=== PATIENT | female | born 1955 | race Caucasian/White ===

== ENCOUNTER 2017-11-18 02:13 | Emergency (ER) | payer BC, SELFPAY ==
[2017-11-18 02:14] VITALS: BP 135/57; PULSE 73; RESP 20; TEMP 36.8; O2SAT 98; BMI 27.0
--- NOTE | 2017-11-18 02:38 | EKG12_ITS ---
Test Reason : ABD PAIN Blood Pressure : / mmHG Vent. Rate : 067 BPM Atrial Rate : 067 BPM P-R Int : 132 ms QRS Dur : 082 ms QT Int : 440 ms P-R-T Axes : 062 053 067 degrees QTc Int : 464 ms Normal sinus rhythm Low voltage QRS Borderline ECG Confirmed by PEYTON DURAN, JULIA ([id number]), associate entertainment editor EPHRAIM OLSEN ([id number]) on 11/20/2017 2:05:33 PM Referred By: ISABEL Confirmed By:JULIA TODD MD
--- NOTE | 2017-11-18 02:39 | CT_ITS ---
STUDY: CT ABDOMEN AND PELVIS WITH CONTRAST REASON FOR EXAM: Female, 62 years old. Mid abdominal pain. History of breast cancer and sinus cancer. RADIATION DOSAGE (If Supplied By Facility): CTDIvol = ( 13.16 ) mGy, DLP = ( 818.56 ) mGycm TECHNIQUE: Transaxial images were obtained from the dome of the diaphragm to the symphysis pubis without oral contrast. 100ml ml of Isovue 300 contrast was administered. Sagittal and coronal images were reconstructed. Individualized dose optimization techniques were used for this CT. COMPARISON: None. FINDINGS: The visualized lung bases are unremarkable. The visualized portions of the heart are within normal limits. 0.8 x 0.5 cm low-attenuation lesion right lobe of the liver likely representing an incidental cyst or hemangioma. Mildly distended gallbladder. It is difficult to totally exclude pericholecystic fluid. No gallbladder wall thickening or gallstones. Normal spleen. Normal pancreas. Normal bilateral adrenal glands. Normal right kidney. Normal left kidney. Normal visualized stomach. Normal small intestine. Normal colon. There is non-visualization of the appendix compatible with history of appendectomy. Normal abdominal aorta. Normal inferior vena cava. Normal retroperitoneum. No intraabdominal free air. Normal urinary bladder. Uterus grossly normal. No adnexal mass is seen. Normal abdominal wall. Normal osseous structures. CT/Abdomen/Pelvis W IV Cont ONLY IMPRESSION: Mildly distended gallbladder. Questionable pericholecystic fluid. Correlate with right upper quadrant ultrasound to exclude acute cholecystitis. 0.8 cm low-attenuation lesion right lobe of the liver difficult to characterize with CT. This can be evaluated by ultrasound as well. No evidence of bowel obstruction. Electronically Signed: Ray Brumfield MD at 4:21 EDT , Service support ,
--- NOTE | 2017-11-18 02:40 | RAD_ITS ---
STUDY: X-RAY CHEST REASON FOR EXAM: Female, 62 years old. Epigastric pain. TECHNIQUE: PA and lateral chest. COMPARISON: January 26, 2015 FINDINGS: The lungs are clear and expanded. There is no demonstrated pleural abnormality. Normal size heart. Normal mediastinum and karina. Normal visualized pulmonary arteries. Normal visualized aortic arch and descending thoracic aorta. Normal visualized thoracic spine. Normal visualized ribs, clavicles, and shoulders. There is no demonstrated abnormality of the visualized soft tissue structures of the upper abdomen. RAD/Chest PA and Lateral IMPRESSION: Normal x-ray examination of the chest. Electronically Signed: Ray Brumfield MD at 3:49 EDT , Service support ,
--- NOTE | 2017-11-18 02:43 | ED.DCSUM_ITS ---
- ER Visit Summary Date of Service: 11/18/17 Chief Complaint: Abdominal pain History of Present Illness: The patient is a 62 F with history of blindness and cancer of the sinus and breast who presents for severe abdominal pain. Onset was 4 hours ago. Pain is in the epigastric region and radiates into the back. Patient has associated nausea and vomiting. No fever, diarrhea, urinary symptoms, chest pain or shortness of breath. Patient has tried Gas-X, ranitidine, and Cris-[place] without any relief. She recently traveled to [place] but denies any exposure to exotic foods or any other odd exposures. Patient takes baby aspirin and Celexa. No alcohol or tobacco use. History of appendectomy. Physical Examination: Vital signs: afebrile, hemodynamically stable, no hypoxia on room air General: well nourished, well developed, appears uncomfortable, laying left lateral recumbent in bed with knees drawn to chest Skin: warm, dry, no rash, no pallor HEENT: normocephalic and atraumatic; eyes closed, moist mucous membranes Cardiovascular: regular rate and rhythm without murmurs, no peripheral edema, 2 + pulses all distal extremities Respiratory: No increased work of breathing, lungs are clear to auscultation bilaterally, no rales, rhonchi or wheezing Abdominal: Abdomen is soft, tender diffusely, especially in the epigastrium, with normoactive bowel sounds, no guarding or rigidity or rebound, no masses MSK: Moves all extremities, no deformities, normal strength Neuro: Awake and alert, oriented ?4. No facial droop, sensation and motor function intact and symmetric Test Results: Abnormal Lab Results 11/18/17 11/18/17 11/18/17 02:15 02:15 02:45 WBC 10.6 RBC 4.46 Hgb 11.6 L Hct 37.2 MCV 83.4 MCH 26.0 L MCHC 31.2 L RDW 14.5 RDW Differential 44.6 H Plt Count 270 MPV 9.6 Immature Gran % (Auto) 0.300 Neut % (Auto) 41.3 L Lymph % (Auto) 45.1 H [place] % (Auto) 5.2 Eos % (Auto) 7.8 H Baso % (Auto) 0.3 Absolute Neuts (auto) 4.4 Absolute Lymphs (auto) 4.80 H Total Counted Not Reportable Sodium 141 Potassium 3.5 Chloride 104 Carbon Dioxide 27.0 Anion Gap 10 BUN 11 Creatinine 0.95 Estim Creat Clear Calc 51.44 Est GFR (MDRD) Af Amer 77 Est GFR (MDRD) Non-Af 64 BUN/Creatinine Ratio 11.6 Glucose 110 H Lactic Acid 1.8 Calcium 9.0 Total Bilirubin 0.30 AST 20 ALT 26 Alkaline Phosphatase 117 Troponin I < 0.015 Total Protein 7.7 Albumin 3.5 Globulin 4.2 Albumin/Globulin Ratio 0.8 L Lipase 167 Urine Color Urine Clarity Urine pH Ur Specific [place] Urine Protein Urine Glucose (UA) Urine Ketones Urine Occult Blood Urine Nitrite Urine Bilirubin Urine Urobilinogen Ur Leukocyte Esterase Urine RBC Urine WBC Ur Squamous Epith Cells Urine Bacteria Urine Mucus 11/18/17 03:20 WBC RBC Hgb Hct MCV MCH MCHC RDW RDW Differential Plt Count MPV Immature Gran % (Auto) Neut % (Auto) Lymph % (Auto) [place] % (Auto) Eos % (Auto) Baso % (Auto) Absolute Neuts (auto) Absolute Lymphs (auto) Total Counted Sodium Potassium Chloride Carbon Dioxide Anion Gap BUN Creatinine Estim Creat Clear Calc Est GFR (MDRD) Af Amer Est GFR (MDRD) Non-Af BUN/Creatinine Ratio Glucose Lactic Acid Calcium Total Bilirubin AST ALT Alkaline Phosphatase Troponin I Total Protein Albumin Globulin Albumin/Globulin Ratio Lipase Urine Color Yellow Urine Clarity Sl. Cloudy Urine pH 6.5 Ur Specific [place] 1.015 Urine Protein Negative Urine Glucose (UA) Normal Urine Ketones Negative Urine Occult Blood 25 H Urine Nitrite Negative Urine Bilirubin Negative Urine Urobilinogen Normal Ur Leukocyte Esterase 25 H Urine RBC 0-5 SEEN Urine WBC 0-5 SEEN Ur Squamous Epith Cells 0-5 SEEN Urine Bacteria 1+ Urine Mucus RARE Clinical Impression(s) from Imaging Studies Abdomen/Pelvis CT 11/18/17 02:39 IMPRESSION: Mildly distended gallbladder. Questionable pericholecystic fluid. Correlate with right upper quadrant ultrasound to exclude acute cholecystitis. 0.8 cm low-attenuation lesion right lobe of the liver difficult to characterize with CT. This can be evaluated by ultrasound as well. No evidence of bowel obstruction. Chest X-Ray 11/18/17 02:40 IMPRESSION: Normal x-ray examination of the chest. Emergency Department Course and Treatment: Patient is very uncomfortable appearing. She was given IV fluids, morphine and Zofran for symptomatic relief. Given the location of patient's pain in the epigastrium, abdominal workup and chest pain workup were performed. EKG showed a sinus rhythm without ischemia or ectopy. Chest x-ray showed no infiltrates or pneumothorax. Troponin negative. CBC showed no leukocytosis. Chemistry panel showed no renal dysfunction or electrolyte derangements. Hepatic function was within normal limits and lipase was normal. Urinalysis showed no signs of infection. Lactate was normal at 1.8. CT of the abdomen and pelvis showed a distended gallbladder with no apparent gallstones or wall thickening, and questionable pericholecystic fluid. Patient was reevaluated and had great improvement in her pain. She was resting comfortably in bed, and on reevaluation she had mild epigastric tenderness and no right upper quadrant tenderness or positive Hwang sign. Given her improvement and benign repeat exam, the gallbladder distention and questionable pericholecystic fluid on the CT scan are less likely to be cholecystitis, as patient also has no leukocytosis and is afebrile. Discussed with patient the option of getting an ultrasound in the morning when the molecular technologist arrives versus patient discharged and getting an ultrasound outpatient. Patient opted for discharge and was given an order for an outpatient ultrasound that she will get later today. Return precautions were given, and patient will return if her pain returns, she develops a fever, uncontrolled vomiting or has any other concerns. Given the patient's improvement with 1 round of pain medication, symptoms less than 6 hours in duration, history provided of patient having a large cheeseburger for dinner, and no leukocytosis or fever, patient's symptoms would be more likely biliary colic rather than acute cholecystitis, if her symptoms were due to gallbladder pathology at all. Unlikely cardiac given the reproducible pain with palpation of the abdomen, thus no further cardiac workup performed. Patient was discharged home with her . She was offered prescriptions for pain medications and antiemetics, and declined. Treatment Plan: [] Disposition: [] Impression: Epigastric abdominal pain, biliary colic This note was generated with [employer] dictation software. It may contain incorrect words, spelling, and punctuation that were not noted in review of the chart prior to signing ED Disposition - Plan for ED Patient: Disposition: Home or Assisted Living Chief Complaint: Abd Pain Instructions: ED Abdominal Pain Gallstone Poss Referrals: Gumaro Aiken DO [Primary Care Provider] - 1-2 Days if not improving Additional Instructions: Please get the gallbladder ultrasound performed outpatient today or tomorrow to evaluate for gallstones. You may use Tylenol as needed for pain and your home Zofran as needed for nausea. You develop severe pain again, have a fever, uncontrolled vomiting, or any other concerning symptoms, please return immediately to the emergency department for another evaluation.
[2017-11-18] MEDS: 0.9% Normal Saline 1,000 ML 1000 ML IV (02:45)
[2017-11-18] MEDS: Ondansetron 4 MG/2 ML Vial IV (02:45)
[2017-11-18] MEDS: Morphine 4 MG/ML Syringe IV (02:46)
[2017-11-18 02:55] LABS: Absolute Neutrophil Count 4.4 X10^3/uL (2.0-7.7); Basophil# 0.03 X10^3/uL; Basophil% 0.3 % (0-1); Eosinophil# 0.83 X10^3/uL; Eosinophils% 7.8 % (0-5); Hematocrit 37.2 % (37-47); Hemoglobin 11.6 g/dl (12.0-15.0); Lymphocyte % 45.1 % (19-41); Mean Corp Hgb Conc 31.2 g/gl (32-36); Mean Corpuscular Volume 83.4 fL (81-99); Mean Platelet Vol. 9.6 fl (6.2-12.0); Monocyte# 0.55 X10^3/uL; Monocyte% 5.2 % (0-10); Neutrophil % 41.3 % (47-70); Platelet Count 270 K/mm3 (150-450); RBC Distribution Width CV 14.5 % (11.6-14.6); RBC Distribution Width SD 44.6 fl (35.1-43.9); Red Blood Count 4.46 M/mm3 (4.2-5.4); White Blood Count 10.6 K/mm3 (4.4-11.0)
[2017-11-18 03:00] LABS: POSITIVE COUNT NO; POSITIVE DIFFERENTIAL NO; POSITIVE MORPHOLOGY NO
[2017-11-18 03:10] LABS: ALB/GLOB Ratio 0.8 RATIO (0.9-2.4); AST(SGOT) 20 U/L (15-37); Alanine Aminotransfer ALT/SGPT 26 U/L (13-56); Albumin, Serum 3.5 g/dL (3.2-5.0); Alkaline Phosphatase 117 U/L (45-117); Anion Gap 10 (5-15); BUN 11 mg/dL (7-18); BUN/Creat Ratio 11.6 RATIO (10-20); Chloride 104 mmol/L (98-107); Creatinine, Serum 0.95 mg/dL (0.55-1.02); EST Glomerular Filtration Rate 64 mL/min (>60); Est Glom Filt Rate - Afr Amer 77 mL/min (>60); Estimated Creatinine Clearance 51.44 ml/min; Globulin 4.2 g/dL (2.2-4.2); Glucose 110 mg/dL (74-106); Lipase 167 U/L (73-393); Potassium 3.5 mmol/L (3.5-5.1); Protein, Total 7.7 g/dL (6.4-8.2); Sodium Level 141 mmol/L (136-145)
[2017-11-18 03:22] LABS: Lactic Acid 1.8 mmol/L (0.4-2.0)
[2017-11-18 03:30] LABS: Color, Urine Yellow (Yellow); Glucose, Dipstick Normal (Normal); Ketone-Dipstick Negative (Negative); Leukocyte Esterase-Dipstick 25 /ul (Negative); Nitrite-Dipstick Negative (Negative); Occult Blood-Urine 25 /ul (Negative); Protein-Dipstick Negative (Negative); Specific Gravity, Urine 1.015 (1.002-1.030); Urine Bilirubin Dipstick Negative (Negative); Urine Clarity Sl. Cloudy (Clear); Urine Urobilinogen Normal (Normal); Urine pH 6.5 (5.0 - 8.0)
[2017-11-18 03:35] LABS: Bacteria 1+ /hpf (None Seen); Squamous Epithelial Cells - UA 0-5 SEEN /hpf (5-10); White Blood Cells 0-5 SEEN /hpf (0-5)
[2017-11-18 03:36] LABS: Mucous, Urine RARE /hpf (<or=2+); Red Blood Cells-Urine 0-5 SEEN /hpf (0-5)
[2017-11-18 04:18] VITALS: BP 132/78; PULSE 79; RESP 98
--- NOTE | 2017-11-18 04:56 | ED.DEP ---
ED Disposition - Plan for ED Patient: Disposition: Home or Assisted Living Chief Complaint: Abd Pain Instructions: ED Abdominal Pain Gallstone Poss Referrals: Gumaro Aiken DO [Primary Care Provider] - 1-2 Days if not improving Additional Instructions: Please get the gallbladder ultrasound performed outpatient today or tomorrow to evaluate for gallstones. You may use Tylenol as needed for pain and your home Zofran as needed for nausea. You develop severe pain again, have a fever, uncontrolled vomiting, or any other concerning symptoms, please return immediately to the emergency department for another evaluation.
[2017-11-18 05:07] VITALS: BP 106/56; PULSE 80; RESP 14; O2SAT 98
== END 2017-11-18 05:09 | disposition home or self-care (01) ==
PROVIDERS: Emergency Provider Emergency Medicine; Family Provider Preventive Medicine Occupational Medicine; PCP Preventive Medicine Occupational Medicine
DX: R10.13 Epigastric pain (principal); K80.50 Calculus of bile duct without cholangitis or cholecystitis without obstruction; H54.7 Unspecified visual loss
CPT/HCPCS: 71046; 74177; 80053; 81001; 83605; 83690; 84484; 85025; 87086; 87088; 93005; 99283; J7030; Q9967; A4216; J2405

== ENCOUNTER → 2017-11-20 08:37 | Outpatient (CLI) | payer BC, SELFPAY ==
--- NOTE | 2017-11-20 08:49 | US_ITS ---
STUDY: ABDOMINAL ULTRASOUND - RIGHT UPPER QUADRANT REASON FOR VISIT: Female, 62 years old. 2 month history of epigastric pain. TECHNIQUE: Ultrasound evaluation of the right upper quadrant was performed with real-time and static brock-scale imaging. TECHNICAL QUALITY: Adequate. COMPARISON: Comparison is made with prior CT scan the abdomen dated November 18, 2017. FINDINGS: Liver: The liver measures 14.8 cm. There is increased echogenicity consistent with fatty infiltration. The bile ducts are within normal limits. There is hepatic color flow. The direction of portal flow is hepatopetal. There is no demonstrated mass lesion. Gallbladder: Normal distended gallbladder. The gallbladder wall measures 2.0 mm. There is a positive sonographic Hwang's sign. There is no pericholecystic fluid. There is a solitary echogenic gallstone within the gallbladder. This measures 1.2 cm x 1.1 cm x 0.8 cm. Common Bile Duct (C.B.D.): The common bile duct measures 3.9 mm. Pancreas: Normal size of the head, body and tail of the pancreas. There is normal echogenicity of the pancreas. There is no demonstrated pancreatic mass or cyst. Right Kidney: Normal size of the right kidney. The right kidney measures 10.7 cm x 5.0 cm x 4.7 cm. Normal renal cortex. The right cortex measures 1.5 cm. There is no demonstrated renal mass or cyst. There is no right hydronephrosis. US/Gallbladder IMPRESSION: Fatty infiltration of the liver. Solitary gallstone. Electronically Signed: Rafael Santos MD at 13:08 EDT Tel [phone], Service support ,
== END ==
PROVIDERS: Family Provider Preventive Medicine Occupational Medicine; PCP Preventive Medicine Occupational Medicine; Visit Provider Emergency Medicine
DX: K80.50 Calculus of bile duct without cholangitis or cholecystitis without obstruction (principal)
CPT/HCPCS: 76705

== ENCOUNTER 2018-01-19 09:49 | Day surgery (SDC) | payer BC, SELFPAY ==
[2018-01-19] VITALS (9 sets, daily range): BP systolic 111–136; BP diastolic 49–76; PULSE 64–79; RESP 14–16; TEMP 35.9–36.6; O2SAT 98–100; BMI 25.9
--- NOTE | 2018-01-19 | GALL_PTH ---
PATIENT: MALLORIE KUMAR LOC: [facility] [place][id number] AGE/SX: 62/F ROOM: RE01/19/[address]: Dr. Bobby Singleton MD : [id number] BED: DIS: 01/19/2018 SPEC #: [id number] RECD: 01/19/18 14:22 STATUS: MIRLANDE REXin #: [id number] JOSEPH: 01/19/18 00:[address]: Bobby Singleton DEPT: SURGICAL PATHOLOGY RECD BY: Mark Sanchez ENTERED: 01/19/18 14:22 SP TYPE: DANETTE JIMENEZ DR: Dr. Gumaro Aiken, DO Tissues: Gallbladder, NOS Procedures: Surgery Specimen Level III HEADER OPERATION: Laparoscopic cholecystectomy PRE-OP DIAGNOSIS: Cholelithiasis, acute and chronic cholecystitis TISSUE SUBMITTED: Gallbladder MICROSCOPIC DIAGNOSIS Gallbladder, cholecystectomy: Chronic cholecystitis and cholelithiasis. Benign pericystic lymph node. AM:cheyanne 01/20/18 MICROSCOPIC DESCRIPTION Slides are reviewed. GROSS DESCRIPTION Received is one container labeled with the patient's name and designated gallbladder. The specimen consists of a gallbladder measuring 6.5 x 3 x 2.5 cm. The external surface is smooth and glistening. Focally, it is granular, hemorrhagic and contains cautery artifact. The lumen of the gallbladder contains mucoid bile and multiple chalky yellow calculi ranging in size 0.2 to 0.7 cm. The mucosa is bile-stained and without any mass lesions. The gallbladder wall averages 0.1 cm in thickness and is free of mass lesions. Mail Carrier And Clerk sections of the gallbladder and the cystic duct are submitted in one cassette. / AM:cheyanne 01/19/18 TC:3 CPT: 23872
--- NOTE | 2018-01-19 10:04 | EKG12_ITS ---
Test Reason : PRE-OP Blood Pressure : / mmHG Vent. Rate : 081 BPM Atrial Rate : 081 BPM P-R Int : 132 ms QRS Dur : 084 ms QT Int : 404 ms P-R-T Axes : 053 033 060 degrees QTc Int : 469 ms Normal sinus rhythm Normal ECG When compared with ECG of 18-NOV-2017 03:09, No significant change was found Confirmed by PEYTON DURAN, JULIA ([id number]), school photograph editor EPHRAIM OLSEN ([id number]) on 01/22/2018 2:01:48 PM Referred By: Bobby Singleton Confirmed By:JULIA TODD MD
[2018-01-19] MEDS: Cefazolin 2 GM in 0.9% Normal Saline 100 ML IV (11:58)
--- NOTE | 2018-01-19 11:58 | DCINST_ITS ---
Discharge Diet: Light diet - advance as tolerated Discharge Activity: May Not Drive - for 2-3 days or while taking narcotic pain medications., - - Do not drive, work heavy equipment or sign legal documents for 24 hours. May shower in (days): 1 - with the bandage in place. Additional Activity Instructions:: Pain medication may cause nausea. You should typically eat light foods as you take your pain medications. Pain medication may also cause constipation. If this is a problem for you, please discuss with your doctor. Call your doctor if your incision/area has: Continuous Slow Oozing, Sudden Increased Bleeding, Increased Pain/ Swelling, Increased Redness, Foul Smelling Discharge Call your doctor if you observe: Fever of 101 or Higher Suture Line Care: Avoid Pulling/Pushing, Avoid Pinching/Bending Additional Dressing/Incision Instructions:: Leave operative bandaids on for 2 days. When you remove dressing, leave Steri-Strips on until your follow-up appointment, or until the Steri-Strips fall off on their own. Allergies/Adverse Reactions: Allergies latex Allergy (Verified 07/27/14 14:22) Hives amoxicillin [From Augmentin] Adverse Reaction (Verified 01/18/18 14:10) Diarrhea clavulanic acid [From Augmentin] Adverse Reaction (Verified 01/18/18 14:10) Diarrhea Medications to take at Discharge Ondansetron [Zofran Odt] 8 mg PO Q8H PRN PRN #10 07/27/14 Aspir-Low 81 mg PO DAILY PRN 11/18/17 Cholecalciferol (Vitamin D3) [Vitamin D3] 2,000 unit PO DAILY 01/18/18 Melatonin 10 mg PO QHS 01/18/18 Multivitamin [Multiple Vitamins] 1 each PO DAILY 01/18/18 Primary Care Physician: Gumaro Aiken DO [Primary Care Provider] - Test Results: Test results from this visit will be discussed in further detail at your follow- up appointment, if applicable. Please Follow Up With: Bobby Singleton MD - Please call [phone] to schedule an appointment. When: 7 days after your surgery.
--- NOTE | 2018-01-19 12:01 | OP.PCM_ITS ---
Problem List (1) Calculus of gallbladder with acute on chronic cholecystitis without obstruction Status: Acute (2) Right upper quadrant pain Status: Acute Report of Operation Date of Procedure: 01/19/18 Pre-Operative Diagnosis: k80.12 calculus of the gallbladder with acute on chronic cholecystitis without obstruction. R10.11 right upper quadrant abdominal pain Post-Operative Diagnosis: Same Surgery/Procedure Performed:: Laparoscopic cholecystectomy Type of Anesthesia:: General Anesthesiologist: Robert Peoples Description of Procedure: Patient was brought into the operating room placed in the supine position. Under excellent general endotracheal intubation the abdomen was sterilely prepped and draped in the usual fashion. Local was injected infraumbilically. Incision was made and carried down to the fascia. The fascia was grasped with a Ti. Varies needle was placed inside the abdomen. The abdomen was insufflated to 15 torr. A 10/12 trocar was placed without difficulty. Patient was placed in the head up and rotated to the left position. A subxiphoid #5 trocar was placed, inferior to this another #5 trocar was placed, laterally a # 5 trocar was placed. All of these under direct visualization without injury to underlying structures. Fundus of the gallbladder was grasped retracted in a cephalad direction moderate amount of adhesions were taken down. I dissected out the cystic duct. Hemoclips were placed proximally and distally and the duct was ligated. Cystic artery was dissected free I placed 3 hemoclips on this ligated deliver the gallbladder from the gallbladder bed with use of electrocautery I had no spillage of bile. Placed a specimen specimen bag and delivered through the umbilical port without difficulty. I irrigated the right upper quadrant good hemostasis was noted. Inspection of the stomach and duodenum all appeared normal as did the pylorus area. There is no inflammation the liver was soft and very pliable and look normal. I removed the trochars under direct visualization. I closed the fascia the umbilical port with a [id number] stitch of 0 Vicryl. Skin incisions were closed with a particular stitches of 4-0 Monocryl. Steri-Strips are applied. Sterile dressings were applied. The patient tolerated the procedure well. - Admit VTE Documentation VTE Present on Admission: No VTE Mechan Device Prophylaxis: SCD's VTE Pharm Prophylaxis ordered?: No Reason prophylaxis not ordered:: Treatment Not Indicated
[2018-01-19] MEDS: Bupivacaine Mpf 0.5% 30 ML VIAL (12:38)
[2018-01-19] MEDS: oxyCODONE 5 MG Tablet 10 MG PO (14:38)
== END 2018-01-19 15:57 | disposition home or self-care (01) ==
LOC: SDC 09:50 → AC 09:51
PROVIDERS: Family Provider Preventive Medicine Occupational Medicine; PCP Preventive Medicine Occupational Medicine; Visit Provider Surgery
PROC: (CPT 47562; principal; 2018-01-19 11:40)
DX: K80.10 Calculus of gallbladder with chronic cholecystitis without obstruction (principal); K21.9 Gastro-esophageal reflux disease without esophagitis; J32.9 Chronic sinusitis, unspecified; Z79.82 Long term (current) use of aspirin; Z85.3 Personal history of malignant neoplasm of breast
CPT/HCPCS: 47562; 88304; 93005; J7120; J2405

== ENCOUNTER → 2018-09-15 11:52 | Outpatient (CLI) | payer BC, MEDICARE, SELFPAY ==
--- NOTE | 2018-09-15 12:45 | RAD_ITS ---
STUDY: X-RAY CHEST REASON FOR EXAM: Female, 63 years old. Rash TECHNIQUE: Frontal and lateral views of the chest. COMPARISON: 01/26/2015 FINDINGS: The lungs are clear and expanded. There is no demonstrated pleural abnormality. Normal size heart. Normal mediastinum and karina. Normal visualized pulmonary arteries. Normal visualized aortic arch and descending thoracic aorta. Normal visualized thoracic spine. Normal visualized ribs, clavicles, and shoulders. There is no demonstrated abnormality of the visualized soft tissue structures of the upper abdomen. RAD/Chest PA and Lateral IMPRESSION: Normal x-ray examination of the chest. Electronically Signed: Sameer Soni MD at 15:15 EDT Tel , Service support ,
[2018-09-15 12:53] LABS: Absolute Lymphocyte Count 2.33 X10^3/ul (0.83-4.51); Absolute Neutrophil Count 5.1 X10^3/uL (2.0-7.7); Basophil# 0.03 X10^3/uL; Basophil% 0.3 % (0-1); Eosinophil# 0.84 X10^3/uL; Eosinophils% 9.5 % (0-5); Hematocrit 36.8 % (37-47); Hemoglobin 11.6 g/dl (12.0-15.0); Lymphocyte # 2.33 X10^3/ul (4.0); Lymphocyte % 26.3 % (19-41); Mean Corp Hgb Conc 31.5 g/gl (32-36); Mean Corpuscular Hgb 25.8 pg (27.0-32.0); Mean Platelet Vol. 9.3 fl (6.2-12.0); Monocyte# 0.58 X10^3/uL; Monocyte% 6.5 % (0-10); Neutrophil # 5.07 X10^3/uL (2.7-7.7); Neutrophil % 57.3 % (47-70); Platelet Count 281 K/mm3 (150-450); RBC Distribution Width CV 14.2 % (11.6-14.6); RBC Distribution Width SD 42.3 fl (35.1-43.9); Red Blood Count 4.49 M/mm3 (4.2-5.4); White Blood Count 8.9 K/mm3 (4.4-11.0)
[2018-09-15 13:04] LABS: POSITIVE COUNT NO; POSITIVE DIFFERENTIAL NO; POSITIVE MORPHOLOGY NO
[2018-09-15 13:31] LABS: AST(SGOT) 26 U/L (15-37); Alanine Aminotransfer ALT/SGPT 30 U/L (13-56); Albumin, Serum 3.5 g/dL (3.2-5.0); Alkaline Phosphatase 99 U/L (45-117); Anion Gap 8 (5-15); BUN 9 mg/dL (7-18); BUN/Creat Ratio 10.2 RATIO (10-20); Bilirubin, Direct 0.06 mg/dL (0.00-0.30); Calcium,Total 8.8 mg/dL (8.5-10.1); Chloride 106 mmol/L (98-107); Creatinine, Serum 0.88 mg/dL (0.55-1.02); EST Glomerular Filtration Rate 69 mL/min (>60); Est Glom Filt Rate - Afr Amer 83 mL/min (>60); Globulin 3.9 g/dL (2.2-4.2); Glucose 87 mg/dL (74-106); Potassium 3.9 mmol/L (3.5-5.1); Protein, Total 7.4 g/dL (6.4-8.2); Sodium Level 140 mmol/L (136-145); T4 Free Direct 0.89 ng/dL (0.76-1.46)
[2018-09-15 14:11] LABS: HIV - WCH Non-Reactive (Nonreactive)
[2018-09-17 09:14] LABS: Hep C Antibodies <0.1 s/co ratio (0.0-0.9)
== END ==
PROVIDERS: Family Provider Preventive Medicine Occupational Medicine; PCP Preventive Medicine Occupational Medicine; Referring Provider Dermatology; Visit Provider Dermatology
DX: L29.8 Other pruritus (principal); D48.5 Neoplasm of uncertain behavior of skin; L28.1 Prurigo nodularis; L30.8 Other specified dermatitis; Z08 Encounter for follow-up examination after completed treatment for malignant neoplasm; Z85.828 Personal history of other malignant neoplasm of skin
CPT/HCPCS: 36415; 71046; 80048; 80076; 82784; 84165; 84166; 84439; 84443; 85025; 86334; 86703; 86803

== ENCOUNTER → 2018-10-15 11:45 | Outpatient (CLI) | payer MEDICARE, BC, SELFPAY ==
[2018-10-19 16:07] LABS: PROELU- Albumin, Urine 26.6 % (.); PROELU- Alpha-1-Globulin,Ur 6.8 % (.); PROELU- Alpha-2-Globulin,Ur 19.5 % (.); PROELU- Gamma Globulin, Ur 14.1 % (.); Total Protein, Ur 16.8 mg/dL (Not Estab.)
== END ==
PROVIDERS: Family Provider Preventive Medicine Occupational Medicine; PCP Preventive Medicine Occupational Medicine; Referring Provider Dermatology; Visit Provider Dermatology
DX: L29.8 Other pruritus (principal); L30.8 Other specified dermatitis; D48.5 Neoplasm of uncertain behavior of skin; Z08 Encounter for follow-up examination after completed treatment for malignant neoplasm; Z85.828 Personal history of other malignant neoplasm of skin
CPT/HCPCS: 84166

== ENCOUNTER → 2018-11-22 11:18 | Outpatient (CLI) | payer MEDICARE, BC, SELFPAY ==
[2018-01-19 10:37] VITALS: BMI 25.9
[2018-11-22 12:51] LABS: Absolute Lymphocyte Count 1.88 X10^3/ul (0.83-4.51); Basophil# 0.02 X10^3/uL; Basophil% 0.1 % (0-1); Eosinophil# 0.08 X10^3/uL; Eosinophils% 0.5 % (0-5); Hematocrit 41.9 % (37-47); Hemoglobin 13.4 g/dl (12.0-15.0); Lymphocyte # 1.88 X10^3/ul (4.0); Lymphocyte % 11.9 % (19-41); Mean Corpuscular Hgb 25.9 pg (27.0-32.0); Mean Corpuscular Volume 80.9 fL (81-99); Mean Platelet Vol. 9.5 fl (6.2-12.0); Monocyte# 0.58 X10^3/uL; Monocyte% 3.7 % (0-10); Neutrophil # 12.98 X10^3/uL (2.7-7.7); Neutrophil % 82.4 % (47-70); Platelet Count 374 K/mm3 (150-450); RBC Distribution Width CV 15.1 % (11.6-14.6); RBC Distribution Width SD 44.2 fl (35.1-43.9); Red Blood Count 5.18 M/mm3 (4.2-5.4); White Blood Count 15.8 K/mm3 (4.4-11.0)
[2018-11-22 12:57] LABS: POSITIVE COUNT NO; POSITIVE DIFFERENTIAL NO; POSITIVE MORPHOLOGY NO
[2018-11-24 16:07] LABS: PROELU- Albumin, Urine 27.2 % (.); PROELU- Alpha-1-Globulin,Ur 5.1 % (.); PROELU- Alpha-2-Globulin,Ur 21.1 % (.); PROELU- Beta Globulin, Ur 22.9 % (.); PROELU- Gamma Globulin, Ur 23.7 % (.); Total Protein, Ur 13.4 mg/dL (Not Estab.)
== END ==
PROVIDERS: Family Provider Preventive Medicine Occupational Medicine; PCP Preventive Medicine Occupational Medicine; Referring Provider Dermatology; Visit Provider Dermatology
DX: C44.629 Squamous cell carcinoma of skin of left upper limb, including shoulder (principal); L28.1 Prurigo nodularis; L30.8 Other specified dermatitis; L29.8 Other pruritus; L30.9 Dermatitis, unspecified
CPT/HCPCS: 84166; 85025

== ENCOUNTER → 2018-11-23 10:27 | Outpatient (CLI) | payer MEDICARE, BC, SELFPAY ==
[2018-01-19 10:37] VITALS: BMI 25.9
== END ==
PROVIDERS: Family Provider Preventive Medicine Occupational Medicine; PCP Preventive Medicine Occupational Medicine; Referring Provider Dermatology; Visit Provider Dermatology
DX: C44.629 Squamous cell carcinoma of skin of left upper limb, including shoulder (principal); L28.1 Prurigo nodularis; L30.8 Other specified dermatitis
CPT/HCPCS: 82274; 87177; 87209

== ENCOUNTER → 2019-01-19 14:13 | Outpatient (CLI) | payer MEDICARE, BC, SELFPAY ==
[2019-01-19 15:06] LABS: Absolute Lymphocyte Count 1.65 X10^3/uL (0.83-4.51); Absolute Neutrophil Count 9.8 X10^3/uL (2.0-7.7); Basophil# 0.05 X10^3/uL; Basophil% 0.4 % (0-1); Eosinophil# 0.04 X10^3/uL; Eosinophils% 0.3 % (0-5); Hemoglobin 12.4 g/dL (12.0-15.0); Lymphocyte # 1.65 X10^3/ul (4.0); Lymphocyte % 13.7 % (19-41); Mean Corpuscular Hgb 26.7 pg (27.0-32.0); Mean Platelet Vol. 9.5 fl (6.2-12.0); Monocyte# 0.36 X10^3/uL; NRBC Flagged by Analyzer 0 % (0-5); Neutrophil # 9.84 X10^3/uL (2.7-7.7); Neutrophil % 81.4 % (47-70); Platelet Count 299 K/mm3 (150-450); RBC Distribution Width CV 15.1 % (11.6-14.6); RBC Distribution Width SD 47.2 fl (35.1-43.9); Red Blood Count 4.65 M/mm3 (4.2-5.4); White Blood Count 12.1 K/mm3 (4.4-11.0)
[2019-01-19 15:45] LABS: AST(SGOT) 18 U/L (15-37); Alanine Aminotransfer ALT/SGPT 33 U/L (13-56); Albumin, Serum 3.5 g/dL (3.2-5.0); Alkaline Phosphatase 100 U/L (45-117); Anion Gap 8 (5-15); BUN 13 mg/dL (7-18); BUN/Creat Ratio 11.6 RATIO (10-20); Bilirubin, Direct < 0.05 mg/dL (0.00-0.30); Calcium,Total 8.9 mg/dL (8.5-10.1); Chloride 105 mmol/L (98-107); Creatinine, Serum 1.12 mg/dL (0.55-1.02); EST Glomerular Filtration Rate 52 mL/min (>60); Est Glom Filt Rate - Afr Amer 63 mL/min (>60); Globulin 3.7 g/dL (2.2-4.2); Glucose 88 mg/dL (74-106); Potassium 4.3 mmol/L (3.5-5.1); Protein, Total 7.2 g/dL (6.4-8.2); Sodium Level 141 mmol/L (136-145)
== END ==
PROVIDERS: Family Provider Preventive Medicine Occupational Medicine; PCP Preventive Medicine Occupational Medicine; Referring Provider Dermatology; Visit Provider Dermatology
DX: Z79.899 Other long term (current) drug therapy (principal); D48.5 Neoplasm of uncertain behavior of skin; L30.9 Dermatitis, unspecified; C44.92 Squamous cell carcinoma of skin, unspecified
CPT/HCPCS: 36415; 80048; 80076; 85025

== ENCOUNTER → 2019-02-03 15:44 | Outpatient (CLI) | payer MEDICARE, BC, SELFPAY ==
[2019-02-03 16:32] LABS: Absolute Lymphocyte Count 1.43 X10^3/uL (0.83-4.51); Absolute Neutrophil Count 10.3 X10^3/uL (2.0-7.7); Basophil# 0.02 X10^3/uL; Basophil% 0.2 % (0-1); Eosinophil# 0.02 X10^3/uL; Eosinophils% 0.2 % (0-5); Hematocrit 39.1 % (37-47); Hemoglobin 12.3 g/dL (12.0-15.0); Lymphocyte # 1.43 X10^3/ul (4.0); Lymphocyte % 11.9 % (19-41); Mean Corp Hgb Conc 31.5 g/dL (32-36); Mean Corpuscular Hgb 27.2 pg (27.0-32.0); Mean Corpuscular Volume 86.5 fL (81-99); Mean Platelet Vol. 9.3 fl (6.2-12.0); Monocyte# 0.11 X10^3/uL; Monocyte% 0.9 % (0-10); NRBC Flagged by Analyzer 0 % (0-5); Neutrophil # 10.34 X10^3/uL (2.7-7.7); Neutrophil % 86.3 % (47-70); Platelet Count 297 K/mm3 (150-450); RBC Distribution Width CV 14.9 % (11.6-14.6); RBC Distribution Width SD 46.9 fl (35.1-43.9); Red Blood Count 4.52 M/mm3 (4.2-5.4)
[2019-02-03 17:02] LABS: AST(SGOT) 16 U/L (15-37); Alanine Aminotransfer ALT/SGPT 36 U/L (13-56); Albumin, Serum 3.4 g/dL (3.2-5.0); Alkaline Phosphatase 92 U/L (45-117); Anion Gap 8 (5-15); BUN 10 mg/dL (7-18); BUN/Creat Ratio 9.4 RATIO (10-20); Bilirubin, Direct 0.07 mg/dL (0.00-0.30); Calcium,Total 8.4 mg/dL (8.5-10.1); Chloride 107 mmol/L (98-107); Creatinine, Serum 1.06 mg/dL (0.55-1.02); EST Glomerular Filtration Rate 56 mL/min (>60); Est Glom Filt Rate - Afr Amer 67 mL/min (>60); Globulin 3.6 g/dL (2.2-4.2); Glucose 145 mg/dL (74-106); Sodium Level 141 mmol/L (136-145)
== END ==
PROVIDERS: Family Provider Preventive Medicine Occupational Medicine; PCP Preventive Medicine Occupational Medicine; Referring Provider Dermatology; Visit Provider Dermatology
DX: Z79.899 Other long term (current) drug therapy (principal); D48.5 Neoplasm of uncertain behavior of skin; L30.9 Dermatitis, unspecified; C44.92 Squamous cell carcinoma of skin, unspecified
CPT/HCPCS: 36415; 80048; 80076; 85025

== ENCOUNTER → 2019-02-11 14:38 | Outpatient (CLI) | payer MEDICARE, BC, SELFPAY ==
[2019-02-14 11:07] LABS: Hepatitis B Surface Antibody Non-Reactive; Hepatitis B Surface Antigen Non-Reactive (Nonreactive); Hepatitis C Antibody Non-Reactive (Nonreactive)
[2019-02-15 20:07] LABS: QNTFERON TB Mitogen Value > 10.00 IU/mL (.); QNTFERON TB Nil Value 0.02 IU/mL (.); QNTFERON TB1+ Ag Value 0.02 IU/mL (.); QNTFERON TB2+ Ag Value 0.02 IU/mL (.)
[2019-02-16 11:24] LABS: Hepatitis B Core AB IgM Negative (Negative); QNTIFERON TB Positive Criteria Negative (Negative)
== END ==
PROVIDERS: Family Provider Preventive Medicine Occupational Medicine; PCP Preventive Medicine Occupational Medicine; Referring Provider Dermatology; Visit Provider Dermatology
DX: C44.92 Squamous cell carcinoma of skin, unspecified (principal); D48.5 Neoplasm of uncertain behavior of skin; L30.9 Dermatitis, unspecified; Z79.899 Other long term (current) drug therapy
CPT/HCPCS: 36415; 86480; 86705; 86706; 86803; 87340

== ENCOUNTER → 2019-03-10 11:57 | Outpatient (CLI) | payer MEDICARE, BC, SELFPAY ==
[2018-01-19 10:37] VITALS: BMI 25.9
[2019-03-10 12:35] LABS: Absolute Lymphocyte Count 3.03 X10^3/uL (0.83-4.51); Absolute Neutrophil Count 5.9 X10^3/uL (2.0-7.7); Basophil# 0.04 X10^3/uL; Basophil% 0.4 % (0-1); Eosinophil# 0.39 X10^3/uL; Eosinophils% 3.8 % (0-5); Hematocrit 38.5 % (37-47); Hemoglobin 12.1 g/dL (12.0-15.0); Lymphocyte # 3.03 X10^3/ul (4.0); Lymphocyte % 29.9 % (19-41); Mean Corp Hgb Conc 31.4 g/dL (32-36); Mean Corpuscular Hgb 27.6 pg (27.0-32.0); Mean Corpuscular Volume 87.7 fL (81-99); Mean Platelet Vol. 9.4 fl (6.2-12.0); Monocyte# 0.65 X10^3/uL; Monocyte% 6.4 % (0-10); NRBC Flagged by Analyzer 0 % (0-5); Neutrophil # 5.92 X10^3/uL (2.7-7.7); Neutrophil % 58.4 % (47-70); Platelet Count 286 K/mm3 (150-450); RBC Distribution Width CV 15.9 % (11.6-14.6); RBC Distribution Width SD 48.4 fl (35.1-43.9); Red Blood Count 4.39 M/mm3 (4.2-5.4); White Blood Count 10.1 K/mm3 (4.4-11.0)
[2019-03-10 13:11] LABS: AST(SGOT) 18 U/L (15-37); Alanine Aminotransfer ALT/SGPT 31 U/L (13-56); Albumin, Serum 3.5 g/dL (3.2-5.0); Alkaline Phosphatase 82 U/L (45-117); Bilirubin, Direct 0.06 mg/dL (0.00-0.30); Creatinine, Serum 1.04 mg/dL (0.55-1.02); EST Glomerular Filtration Rate 57 mL/min (>60); Est Glom Filt Rate - Afr Amer 69 mL/min (>60); Globulin 3.8 g/dL (2.2-4.2); Protein, Total 7.3 g/dL (6.4-8.2)
[2019-03-10 13:53] LABS: HIV - WCH Non-Reactive (Nonreactive)
== END ==
PROVIDERS: Family Provider Preventive Medicine Occupational Medicine; PCP Preventive Medicine Occupational Medicine; Referring Provider Dermatology; Visit Provider Dermatology
DX: L57.0 Actinic keratosis (principal); L30.9 Dermatitis, unspecified; Z79.899 Other long term (current) drug therapy; Z11.4 Encounter for screening for human immunodeficiency virus [HIV]; R53.83 Other fatigue
CPT/HCPCS: 36415; 80076; 82565; 85025; 86703

== ENCOUNTER → 2019-05-20 16:08 | Outpatient (CLI) | payer MEDICARE, BC, SELFPAY ==
[2018-01-19 10:37] VITALS: BMI 25.9
[2019-05-20 18:17] LABS: Absolute Lymphocyte Count 1.24 X10^3/uL (0.83-4.51); Basophil# 0.06 X10^3/uL; Basophil% 0.5 % (0-1); Eosinophil# 0.59 X10^3/uL; Eosinophils% 5.1 % (0-5); Hematocrit 39.4 % (37-47); Hemoglobin 12.4 g/dL (12.0-15.0); Lymphocyte # 1.24 X10^3/ul (4.0); Lymphocyte % 10.7 % (19-41); Mean Corp Hgb Conc 31.5 g/dL (32-36); Mean Corpuscular Hgb 28.8 pg (27.0-32.0); Mean Corpuscular Volume 91.6 fL (81-99); Mean Platelet Vol. 9.4 fl (6.2-12.0); Monocyte# 0.56 X10^3/uL; Monocyte% 4.8 % (0-10); NRBC Flagged by Analyzer 0 % (0-5); Neutrophil # 9.04 X10^3/uL (2.7-7.7); Neutrophil % 77.6 % (47-70); Platelet Count 289 K/mm3 (150-450); RBC Distribution Width CV 15.9 % (11.6-14.6); RBC Distribution Width SD 52.2 fl (35.1-43.9); White Blood Count 11.6 K/mm3 (4.4-11.0)
[2019-05-20 18:29] LABS: ALB/GLOB Ratio 0.9 RATIO (0.9-2.4); AST(SGOT) 22 U/L (15-37); Alanine Aminotransfer ALT/SGPT 36 U/L (13-56); Albumin, Serum 3.3 g/dL (3.2-5.0); Alkaline Phosphatase 93 U/L (45-117); Anion Gap 8 (5-15); BUN 9 mg/dL (7-18); BUN/Creat Ratio 8.3 RATIO (10-20); Calcium,Total 8.7 mg/dL (8.5-10.1); Chloride 100 mmol/L (98-107); Creatinine, Serum 1.08 mg/dL (0.55-1.02); EST Glomerular Filtration Rate 54 mL/min (>60); Est Glom Filt Rate - Afr Amer 66 mL/min (>60); Globulin 3.7 g/dL (2.2-4.2); Glucose 116 mg/dL (74-106); Sodium Level 135 mmol/L (136-145)
== END ==
PROVIDERS: Family Provider Preventive Medicine Occupational Medicine; PCP Preventive Medicine Occupational Medicine; Referring Provider Urology; Visit Provider Urology
DX: R53.83 Other fatigue (principal); R30.0 Dysuria
CPT/HCPCS: 36415; 80053; 85025; 87077; 87086; 87088; 87186

== ENCOUNTER → 2020-02-27 | Outpatient (CLI) | payer MEDICARE, SELFPAY ==
[2018-01-19 10:37] VITALS: BMI 25.9
== END | disposition home or self-care (01) ==
LOC: MTLAB 16:20
PROVIDERS: PCP Preventive Medicine Occupational Medicine; Referring Provider Urology; Visit Provider Urology
DX: N39.0 Urinary tract infection, site not specified (principal); R39.15 Urgency of urination
CPT/HCPCS: 87086; 87088; 87186

== ENCOUNTER → 2020-04-17 | Outpatient (CLI) | payer MEDICARE, SELFPAY ==
[2020-04-17 10:21] VITALS: BMI 24.1
[2020-04-20 15:30] LABS: HPV APTIMA, High Risk Negative (Negative)
== END | disposition home or self-care (01) ==
LOC: LABSPEC 11:09
PROVIDERS: PCP Preventive Medicine Occupational Medicine; Referring Provider Nurse Practitioner Women's Health; Visit Provider Nurse Practitioner Women's Health
DX: Z12.4 Encounter for screening for malignant neoplasm of cervix (principal)
CPT/HCPCS: 87624; 88175; G0145

== ENCOUNTER → 2020-06-18 | Outpatient (CLI) | payer MEDICARE, SELFPAY ==
[2020-06-18 11:43] VITALS: BMI 25.0
== END | disposition home or self-care (01) ==
LOC: LABSPEC 13:25
PROVIDERS: PCP Preventive Medicine Occupational Medicine; Referring Provider Nurse Practitioner Women's Health; Visit Provider Nurse Practitioner Women's Health
DX: N95.2 Postmenopausal atrophic vaginitis (principal); R35.0 Frequency of micturition
CPT/HCPCS: 87070; 87077; 87086; 87088; 87186; 87205

== ENCOUNTER → 2021-01-14 | Outpatient (CLI) | payer MEDICARE, SELFPAY ==
[2021-01-14 15:03] VITALS: BMI 25.0
== END | disposition home or self-care (01) ==
LOC: LABSPEC 17:51
PROVIDERS: PCP Preventive Medicine Occupational Medicine; Visit Provider Physician Assistant
DX: N39.0 Urinary tract infection, site not specified (principal); R10.9 Unspecified abdominal pain
CPT/HCPCS: 87086; 87088; 87186

== ENCOUNTER → 2021-04-18 11:10 | Outpatient (CLI) | payer MEDICARE, SELFPAY ==
[2021-04-18 15:17] LABS: NATERA MAILED SPECIMEN
== END ==
PROVIDERS: PCP Nurse Practitioner Family; Referring Provider Nurse Practitioner Women's Health; Visit Provider Nurse Practitioner Women's Health
DX: Z85.9 Personal history of malignant neoplasm, unspecified (principal)
CPT/HCPCS: 36415

== ENCOUNTER → 2021-04-29 12:02 | Outpatient (CLI) | payer MEDICARE, SELFPAY ==
--- NOTE | 2021-04-29 12:04 | US_ITS ---
EXAM: US RETROPERITONEAL COMPLETE, RENAL CLINICAL INDICATION: UTI / FLANK PAIN TECHNIQUE: Grayscale and color Doppler sonographic evaluation of the retroperitoneum was performed. This report was created using [employer] report generation technology. COMPARISON: CT 11/18/2017 FINDINGS: RIGHT KIDNEY: Unremarkable. No hydronephrosis. No shadowing calculus. No focal lesion. No perinephric collection is demonstrated. LEFT KIDNEY: Mildly limited due to bowel gas, obscuring the medial left kidney. Contour abnormality of the left kidney is compatible with a lobulation, as seen on prior CT. No discrete solid mass. No hydronephrosis. No shadowing calculus. No perinephric collection is demonstrated. BLADDER: Urinary bladder is not well-distended. OTHER FINDINGS: Endometrial calcifications partially visualized. US/Kidney and Bladder IMPRESSION: 1. No hydronephrosis or shadowing calculi. Nondistended urinary bladder. 2. Endometrial calcifications partially visualized. Electronically Signed: Aakash Carlos MD (Brooks) at 6:53 EDT , Service support ,
== END ==
PROVIDERS: PCP Nurse Practitioner Family; Referring Provider Urology; Visit Provider Urology
DX: N39.0 Urinary tract infection, site not specified (principal); R10.9 Unspecified abdominal pain
CPT/HCPCS: 76770

== ENCOUNTER 2021-08-23 15:01 | Outpatient (CLI) | payer MEDICARE, BC, SELFPAY ==
[2021-08-23 15:30] LABS: Absolute Lymphocyte Count 3.07 X10^3/uL (0.83-4.51); Absolute Neutrophil Count 5.2 X10^3/uL (2.0-7.7); Basophil# 0.06 X10^3/uL; Basophil% 0.7 % (0-1); Eosinophil# 0.34 X10^3/uL; Eosinophils% 3.7 % (0-5); Hematocrit 37.8 % (37-47); Hemoglobin 12.6 g/dL (12.0-15.0); Lymphocyte # 3.07 X10^3/ul (0.83-4.51); Lymphocyte % 33.5 % (19-41); Mean Corp Hgb Conc 33.3 g/dL (32-36); Mean Corpuscular Volume 81.1 fL (81-99); Mean Platelet Vol. 9.5 fl (6.2-12.0); Monocyte# 0.52 X10^3/uL; Monocyte% 5.7 % (0-10); NRBC Flagged by Analyzer 0 % (0-5); Neutrophil # 5.16 X10^3/uL (2.7-7.7); Neutrophil % 56.2 % (47-70); Platelet Count 293 K/mm3 (150-450); RBC Distribution Width CV 13.5 % (11.6-14.6); RBC Distribution Width SD 39.6 fl (35.1-43.9); Red Blood Count 4.66 M/mm3 (4.2-5.4); White Blood Count 9.2 K/mm3 (4.4-11.0)
[2021-08-23 16:00] LABS: ALB/GLOB Ratio 0.9 RATIO (0.9-2.4); AST(SGOT) 42 U/L (15-37); Alanine Aminotransfer ALT/SGPT 36 U/L (13-56); Albumin, Serum 3.7 g/dL (3.2-5.0); Alkaline Phosphatase 84 U/L (45-117); Anion Gap 5 (5-15); BUN 9 mg/dL (7-18); BUN/Creat Ratio 9.3 RATIO (10-20); Calcium,Total 8.8 mg/dL (8.5-10.1); Chloride 106 mmol/L (98-107); Creatinine, Serum 0.97 mg/dL (0.55-1.02); EST Glomerular Filtration Rate 61 mL/min (>60); Est Glom Filt Rate - Afr Amer 74 mL/min (>60); Ferritin 40 ng/mL (8-252); Globulin 3.9 g/dL (2.2-4.2); Glucose 94 mg/dL (74-106); LDH 202 U/L (84-246); Potassium 3.8 mmol/L (3.5-5.1); Protein, Total 7.6 g/dL (6.4-8.2); Sodium Level 137 mmol/L (136-145)
[2021-08-23 16:26] LABS: Erythrocyte Sedimentation Rate 17 mm/hr (0-30)
[2021-08-26 15:08] LABS: Anti-Centromere B Ab <0.2 AI (0.0-0.9); Anti-Chromatin <0.2 AI (0.0-0.9); Anti-Jo <0.2 AI (0.0-0.9); Anti-Scleroderma-70 AB <0.2 AI (0.0-0.9); RNP Ab <0.2 AI (0.0-0.9); SJOGREN'S Anti-SS-A test < 0.2 AI (0.0-0.9); SJOGREN'S Anti-SS-B test < 0.2 AI (0.0-0.9); Smith Ab <0.2 AI (0.0-0.9)
[2021-08-26 17:59] LABS: Anti-Mitochondrial AB <20.0 Units (0.0-20.0); Anti-dsDNA Ab 1 IU/mL (0-9)
[2021-08-28 08:10] LABS: Angiotensin Convert Enzyme 55 U/L (14-82); Ceruloplasmin 32.1 mg/dL (19.0-39.0); Cytoplasmic Ab (C-ANCA) <1:20 titer (Neg:<1:20)
[2021-08-28 10:13] LABS: Anti-Smooth Muscle ABS 4 Units (0-19); Copper, Serum or Plasma 135 ug/dL (80-158); Haptoglobin 194 mg/dL (37-355); Perinuclear Ab (P-ANCA) <1:20 titer (Neg:<1:20)
== END 2021-08-23 23:59 | disposition home or self-care (01) ==
LOC: LAB 15:03
PROVIDERS: PCP Nurse Practitioner Family; Visit Provider Internal Medicine Gastroenterology
DX: K76.0 Fatty (change of) liver, not elsewhere classified (principal); Z85.3 Personal history of malignant neoplasm of breast; Z98.890 Other specified postprocedural states
CPT/HCPCS: 36415; 80053; 82164; 82390; 82525; 82728; 83010; 83516; 83615; 85025; 85652; 86140; 86225; 86235; 86256

== ENCOUNTER 2021-09-04 10:39 | Outpatient (CLI) | payer MEDICARE, BC, SELFPAY ==
--- NOTE | 2021-09-04 10:45 | US_ITS ---
STUDY: ABDOMINAL ULTRASOUND - RIGHT UPPER QUADRANT REASON FOR VISIT: Female, 66 years old . Primary biliary cirrhosis. TECHNIQUE: Ultrasound evaluation of the right upper quadrant was performed with real-time and static brock-scale imaging. TECHNICAL QUALITY: Adequate. COMPARISON: Comparison is made with prior study dated 11/20/2017. FINDINGS: Liver: The liver measures 16 cm. There is increased echogenicity consistent with fatty infiltration. The bile ducts are within normal limits. There is hepatic color flow. The direction of portal flow is hepatopetal. There is no demonstrated mass lesion. Gallbladder: Normal distended gallbladder. The gallbladder wall measures 2.3 mm. There is a negative sonographic Hwang''s sign. There is no pericholecystic fluid. There are no gallstones. Common Bile Duct (C.B.D.): The common bile duct measures 4.3 mm. Pancreas: Normal size of the head, body and tail of the pancreas. There is increased echogenicity of the pancreas. There is no demonstrated pancreatic mass or cyst. Right Kidney: Normal size of the right kidney. The right kidney measures 11.1 cm x 5.8 cm x 3.9 cm. Normal renal cortex. The right cortex measures 1.2 cm. There is no demonstrated renal mass or cyst. There is no right hydronephrosis. IMPRESSION: Fatty infiltration of the liver. Electronically Signed: Rafael Santos MD at 13:01 EST , STUDY: ABDOMINAL ULTRASOUND - ELASTOGRAPHY REASON FOR VISIT: Female, 66 years old. Primary biliary cirrhosis. TECHNIQUE: Liver stiffness measurements were obtained on a Progeniq 85 ultrasound machine using a CA 1-7 probe following the SRU guidelines. 3 measurements were obtained using a 2-D-SWE method. The IQR/M was 7% suggesting a quality data set. TECHNICAL QUALITY: Adequate. COMPARISON: Comparison is made with prior study done earlier today. FINDINGS: Liver: Fatty infiltration of the liver. Median liver stiffness measured 9 kPa. US/Abdomen Limited IMPRESSION: Liver stiffness measures 9 kPa compatible with F 2/3. Metavir score. Electronically Signed: Rafael Santos MD at 13:02 EST ,
== END 2021-09-04 23:59 | disposition home or self-care (01) ==
LOC: US 10:40
PROVIDERS: PCP Nurse Practitioner Family; Visit Provider Internal Medicine Gastroenterology
DX: K76.0 Fatty (change of) liver, not elsewhere classified (principal)
CPT/HCPCS: 76705; 76981

== ENCOUNTER 2021-10-15 12:58 | Day surgery (SDC) | payer MEDICARE, BC, SELFPAY ==
--- NOTE | 2021-10-15 | ESO_PTH ---
PATIENT: MALLORIE KUMAR LOC: EN U#:[id number] AGE/SX: 66/F ROOM: RE10/15/[address]: Dr. Arnulfo Puente DO : 1955 BED: DIS: 10/15/2021 SPEC #: [id number] RECD: 10/15/21 16:29 STATUS: MIRLANDE REXin #: [id number] JOSEPH: 10/15/21 00:[address]: Anrulfo Puente DEPT: SURGICAL PATHOLOGY RECD BY: Mark Sanchez ENTERED: 10/16/21 10:25 SP TYPE: CIRILO JIMENEZ DR: Angelina Andrade, POWER HOUSE CONTROL ROOM OPERATOR-C Tissues: Esophagus, NOS Procedures: Special Stain Group II Surgery Specimen Level IV Alcian Blue/PAS (control) HEADER [place]PER[place] [place] DIAGNOSIS: Dysphagia TISSUE SUBMITTED: Distal esophagus biopsy MICROSCOPIC DIAGNOSIS Distal esophagus, biopsy: Gastroesophageal junctional mucosa with mild chronic inflammation. No evidence of goblet cell metaplasia. See comment. AM:cheyanne 10/17/2021 COMMENT Alcian blue/PAS stain with matched control supports the above diagnosis. MICROSCOPIC DESCRIPTION Slides are reviewed. GROSS DESCRIPTION Received in fixative is one container labeled with the patient's name and designated distal esophagus biopsy. The specimen consists of two irregular fragments of light sam soft tissue that in aggregate measure 0.7 x 0.5 x 0.1 cm. The specimen is totally submitted in one cassette. / SJ:cheyanne 10/16/2021 TC:3 CPT: 28856, 38155
[2021-10-15 13:31] VITALS: BP 112/66; PULSE 99; RESP 16; TEMP 36.9; O2SAT 98; BMI 22.6
[2021-10-15] MEDS: Lactated Ringers 1,000 ML 15 ML IV (13:35)
--- NOTE | 2021-10-15 13:53 | HP.PCM_ITS ---
History and Physical Date of Admission: 10/15/21 66 F who presents to the office today for dysphagia. She has been having a lot of difficulty with acid reflux, dysphagia and increased gas/hiccups with emesis on two occasions. Has noted that when her stomach has had enough, she has a spasm type sensation. No triggers. Treated with Nexium 20mg QAM, she started having a feeling of a sugar or BP drop. PCP changed to omeprazole 20mg QD with no improvement. Currently taking probiotic and is eating vegetables and a salad. Does not eat close to lying down and attempts to have a healthier diet. Current use of flagyl for UTI. 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 Additionally, had breast cancer 2010 s/p lumpectomy, chemotherapy and radiation. Hyperbaric treatment on two occasions in an attempt to save her sight. 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 Colonoscopy 2017 with normal results. No history of EGD. Gallbladder ultrasound 11.20.17 found liver measurement of 14.8cm with increased echogenicity consistent with fatty infiltration. Gallbladder found positive sonographic Hwang?s sign. Normal pancreas. CT abd/pel found right liver lobe to have 0.8x0.5cm low attenuation lesion likely incidental cyst or hemangioma. Cholecystectomy performed 01.19.[address] Singleton. ROS ENT ENT: Positive for difficulty swallowing Gastro GI: Positive for difficulty swallowing and feeling full early Exam Const General: cooperative and comfortable Nutritional Appearance: average body habitus and well nourished [facility] Head: normal to inspection Ears: hearing grossly normal bilaterally Nose: external nose normal Face and sinus: normal facial exam Mouth: oral mucosae normal Throat: posterior oropharynx normal Eyes General: appearance normal, both eyes and all related structures Neck Neck: normal visual inspection Chest Chest palpation & inspection: normal inspection of the chest and normal palpation of entire chest wall Resp Effort & Inspection: normal respiratory effort Auscultation: Bilateral: Clear to Auscultation Cardio Palpation: normal PMI Rate: regular rate Rhythm: regular rhythm GI Inspection: normal to inspection Auscultation: normal bowel sounds Percussion: normal to percussion Palpation: no hepatosplenomegaly Skin General: no rashes or lesions noted Neuro General: patient alert Extrem General: normal to inspection Psych Affect: normal affect Quality Reporting Tobacco Screening ([facility] 138) Smoking Status: Never smoker Assessment and Plan Assessment and Plan (1) Dysphagia: Status: Acute Orders: Orders: EGD Today Plan - Dr. Arredondo Friend, DO: Possibly secondary to esophageal dysmotility disorder, Schatzki's ring, radiatio n-induced injury, Sjogren's syndrome secondary to radiation. She will undergo an upper endoscopy. She was explained alternatives, risk, benefits including outstanding bleeding, infection, sepsis, perforation, need for emergent and . She will have an ASA of 1. (2) Gastroparesis: Status: Acute Plan - Dr. Arredondo Friend, DO: Differential diagnosis for feeling full would be gastroparesis. This will possibly be secondary to radiation-induced injury to the vagus nerve versus gastroesophageal reflux disease versus idiopathic. To undergo gastric emptying study evaluate upper GI tract. I have re-examined the patient. There are no clinical changes since date of exam.
[2021-10-15 15:10] VITALS: BP 103/70; BP 112/66; PULSE 90; RESP 16; TEMP 36.6; O2SAT 100
--- NOTE | 2021-10-15 15:13 | OP.EGD_ITS ---
Patient Name: Althea No Procedure Date: 10/15/2021 2:41 PM Date of : 1955 Age: 66 Procedure: Upper GI endoscopy Indications: Dysphagia Providers: Arnulfo Puente DO Medicines: Sedation Required Anesthesia Staff Assistance Patient Profile: This is a 66 year old female. Refer to note in patient chart for documentation of history and physical. Patient has symptoms of chronic epigastric abdominal pain and dysphagia with both liquids and solids. Complications: No immediate complications. Procedure: Pre-Anesthesia Assessment: - Prior to the procedure, a History and Physical was performed, and patient medications and allergies were reviewed. The patient is competent. The risks and benefits of the procedure and the sedation options and risks were discussed with the patient. All questions were answered and informed consent was obtained. Patient identification and proposed procedure were verified by the physician in the pre-procedure area. Mental Status Examination: alert and oriented. Airway Examination: normal oropharyngeal airway and neck mobility. Respiratory Examination: clear to auscultation. CV Examination: normal. Prophylactic Antibiotics: The patient does not require prophylactic antibiotics. Prior Anticoagulants: The patient has taken no previous anticoagulant or antiplatelet agents. ASA Grade Assessment: II - A patient with mild systemic disease. After reviewing the risks and benefits, the patient was deemed in satisfactory condition to undergo the procedure. The anesthesia plan was to use moderate sedation / analgesia (conscious sedation). Immediately prior to administration of medications, the patient was re-assessed for adequacy to receive sedatives. The heart rate, respiratory rate, oxygen saturations, blood pressure, adequacy of pulmonary ventilation, and response to care were monitored throughout the procedure. The physical status of the patient was re-assessed after the procedure. After obtaining informed consent, the endoscope was passed under direct vision. Throughout the procedure, the patient's blood pressure, pulse, and oxygen saturations were monitored continuously. The gastroscope was introduced through the mouth, and advanced to the second part of duodenum. The upper GI endoscopy was accomplished without difficulty. The patient tolerated the procedure well. Moderate Sedation: Moderate (conscious) sedation was administered by the endoscopy nurse and supervised by the endoscopist. The patient's oxygen saturation, heart rate, blood pressure and response to care were monitored. Total physician intraservice time was 15 minutes. Scope In: 2:52:35 PM Scope Out: 3:01:31 PM Total Procedure Duration Time 0 hours 8 minutes 56 seconds Findings: One benign-appearing, intrinsic stenosis was found 19 to 21 cm from the incisors. This stenosis was mildly severe and. The stenosis was traversed. A guidewire was placed and the scope was withdrawn. Dilation was performed with a Savary dilator with no resistance at 51 Fr. The dilation site was examined and showed moderate improvement in luminal narrowing. Estimated blood loss was minimal. LA Grade A (one or more mucosal breaks less than 5 mm, not extending between tops of 2 mucosal folds) esophagitis with no bleeding was found 38 to 40 cm from the incisors. Biopsies were taken with a cold forceps for histology. Verification of patient identification for the specimen was done. Estimated blood loss was minimal. A small hiatal hernia was present. The second portion of the duodenum was normal. Impression: - Benign-appearing esophageal stenosis. Dilated. - LA Grade A reflux esophagitis. Biopsied. - Small hiatal hernia. - Normal second portion of the duodenum. Recommendation: - Discharge patient to home. - Resume previous diet. - Continue present medications. - Await pathology results. Procedure Code(s): --- Professional --- 46837, Esophagogastroduodenoscopy, flexible, transoral; with insertion of guide wire followed by passage of dilator(s) through esophagus over guide wire 42348, 59, Esophagogastroduodenoscopy, flexible, transoral; with biopsy, single or multiple G0500, Moderate sedation services provided by the same physician or other qualified health health careers instructor performing a gastrointestinal endoscopic service that sedation supports, requiring the presence of an independent trained observer to assist in the monitoring of the patient's level of consciousness and physiological status; initial 15 minutes of intra-service time; patient age 5 years or older (additional time may be reported with 41450, as appropriate) CPT copyright 2017 [employer]. All rights reserved. The codes documented in this report are preliminary and upon pin inserter regulator review may be revised to meet current compliance requirements. Arnulfo Puente DO 10/15/2021 3:12:45 PM This report has been signed electronically. Number of Addenda: 1 Note Initiated On: 10/15/2021 2:41 PM Addendum Number: 1 Addendum Date: 04/03/2022 6:38:13 AM MAC was used as sedation for this procedure. Arnulfo Puente DO 04/03/2022 6:38:18 AM This report has been signed electronically.
--- NOTE | 2021-10-15 15:13 | OP.CCLET_ITS ---
04/03/2022 Xuna Glass Re : Upper GI endoscopy procedure for Althea No Dear Raymond This procedure was performed on Friday, October 15, 2021. My impressions and recommendations are as follows: Impressions : - Benign-appearing esophageal stenosis. Dilated. - LA Grade A reflux esophagitis. Biopsied. - Small hiatal hernia. - Normal second portion of the duodenum. Recommendations : - Discharge patient to home. - Resume previous diet. - Continue present medications. - Await pathology results. My findings are described in the full procedure note, which is enclosed. If I can be of further assistance, please feel free to contact me at . Sincerely, Arnulfo Puente, 10/15/2021 3:12:45 PM This report has been signed electronically.
[2021-10-15 15:15] VITALS: BP 107/75; BP 112/66; PULSE 87; RESP 18; O2SAT 100
[2021-10-15 15:20] VITALS: BP 107/76; BP 112/66; PULSE 82; RESP 18; O2SAT 100
[2021-10-15 15:25] VITALS: BP 107/75; BP 112/66; PULSE 78; RESP 18; TEMP 36.4; O2SAT 100
[2021-10-15 15:53] VITALS: BP 112/66
== END 2021-10-15 23:59 | disposition home or self-care (01) ==
LOC: EN 13:02 → AC 13:03
PROVIDERS: PCP Nurse Practitioner Family; Referring Provider Nurse Practitioner Family; Visit Provider Internal Medicine Gastroenterology
PROC: 0DJ08ZZ Inspection of Upper Intestinal Tract, Via Natural or Artificial Opening Endoscopic (ICD-10-PCS; CPT 43235; principal; 2021-10-15 14:10)
DX: R13.10 Dysphagia, unspecified (principal); K21.00 Gastro-esophageal reflux disease with esophagitis, without bleeding; K44.9 Diaphragmatic hernia without obstruction or gangrene; K22.2 Esophageal obstruction; K31.84 Gastroparesis; H54.7 Unspecified visual loss; Z79.899 Other long term (current) drug therapy; N39.0 Urinary tract infection, site not specified; L90.0 Lichen sclerosus et atrophicus; K76.0 Fatty (change of) liver, not elsewhere classified; M19.90 Unspecified osteoarthritis, unspecified site
CPT/HCPCS: 43239; 43248; 88305; 88313; J7120; C1769

== ENCOUNTER → 2021-10-29 | Outpatient (CLI) | payer MEDICARE, BC, SELFPAY ==
[2021-10-29 12:36] LABS: Erythrocyte Sedimentation Rate 16 mm/hr (0-30)
[2021-10-29 12:38] LABS: Absolute Lymphocyte Count 2.32 X10^3/uL (0.83-4.51); Absolute Neutrophil Count 4.1 X10^3/uL (2.0-7.7); Basophil# 0.04 X10^3/uL; Basophil% 0.5 % (0-1); Eosinophil# 0.31 X10^3/uL; Eosinophils% 4.2 % (0-5); Hematocrit 39.8 % (37-47); Hemoglobin 12.7 g/dL (12.0-15.0); Lymphocyte # 2.32 X10^3/ul (0.83-4.51); Lymphocyte % 31.4 % (19-41); Mean Corp Hgb Conc 31.9 g/dL (32-36); Mean Corpuscular Hgb 25.9 pg (27.0-32.0); Mean Corpuscular Volume 81.2 fL (81-99); Mean Platelet Vol. 9.6 fl (6.2-12.0); Monocyte# 0.57 X10^3/uL; Monocyte% 7.7 % (0-10); NRBC Flagged by Analyzer 0 % (0-5); Neutrophil # 4.13 X10^3/uL (2.7-7.7); Neutrophil % 55.9 % (47-70); Platelet Count 312 K/mm3 (150-450); RBC Distribution Width SD 38.4 fl (35.1-43.9); White Blood Count 7.4 K/mm3 (4.4-11.0)
[2021-10-29 13:05] LABS: ALB/GLOB Ratio 0.9 RATIO (0.9-2.4); AST(SGOT) 20 U/L (15-37); Alanine Aminotransfer ALT/SGPT 27 U/L (13-56); Albumin, Serum 3.7 g/dL (3.2-5.0); Alkaline Phosphatase 92 U/L (45-117); Anion Gap 5 (5-15); BUN 15 mg/dL (7-18); BUN/Creat Ratio 15.5 RATIO (10-20); Calcium,Total 8.9 mg/dL (8.5-10.1); Chloride 106 mmol/L (98-107); Creatinine, Serum 0.97 mg/dL (0.55-1.02); EST Glomerular Filtration Rate 61 mL/min (>60); Est Glom Filt Rate - Afr Amer 74 mL/min (>60); Globulin 4.2 g/dL (2.2-4.2); Glucose 82 mg/dL (74-106); Potassium 3.6 mmol/L (3.5-5.1); Protein, Total 7.9 g/dL (6.4-8.2); Sodium Level 138 mmol/L (136-145)
[2021-10-31 17:42] LABS: Gastrin, Serum 220 pg/mL (0-115)
== END | disposition home or self-care (01) ==
LOC: LAB 12:17
PROVIDERS: PCP Nurse Practitioner Family; Referring Provider Internal Medicine Gastroenterology; Visit Provider Internal Medicine Gastroenterology
DX: R68.81 Early satiety (principal); K31.84 Gastroparesis; R13.10 Dysphagia, unspecified; Z85.3 Personal history of malignant neoplasm of breast
CPT/HCPCS: 36415; 80053; 82533; 82941; 84443; 85025; 85652; 86140

== ENCOUNTER → 2021-11-12 | Outpatient (CLI) | payer MEDICARE, BC, SELFPAY ==
--- NOTE | 2021-11-12 10:18 | NM_ITS ---
EXAM: NM GASTRIC EMPTYING SCAN CLINICAL INDICATION: early satiety TECHNIQUE: Patient was fed a meal containing 1.1 mCi of Tc99m sulfur colloid in oatmeal. Images of the abdomen were obtained over a period of 4 hours. Half time of gastric emptying and percent retention of radionuclide activity were calculated. This report was created using F?rsat [employer] F?rsat report [employer] technology. COMPARISON: None. FINDINGS: STOMACH: The T1/2 of gastric activity is 59 minutes. 25% gastric emptying noted at 30 minutes. NM/Gastric Emptying Study IMPRESSION: Normal gastric emptying. Electronically Signed: Ham Ellis MD at 13:11 EDT ,
== END | disposition home or self-care (01) ==
LOC: NM 10:12
PROVIDERS: PCP Nurse Practitioner Family; Referring Provider Internal Medicine Gastroenterology; Visit Provider Internal Medicine Gastroenterology
DX: R68.81 Early satiety (principal); K31.84 Gastroparesis; R13.10 Dysphagia, unspecified
CPT/HCPCS: 78264; A9541

== ENCOUNTER → 2022-01-13 | Outpatient (CLI) | payer MEDICARE, BC, SELFPAY ==
[2022-01-13 12:38] LABS: Follicle Stimulating Hormone 20.3 mIU/mL; Free T3 1.8 pg/mL (2.18-3.98); Luteinizing Hormone 6.3 mIU/mL; T4 Free Direct 0.89 ng/dL (0.76-1.46)
[2022-01-16 17:02] LABS: Adrenocorticotropic Hormone 32.5 pg/mL (7.2-63.3); Insulin Like Growth Factor 40 ng/mL (57-202)
== END | disposition home or self-care (01) ==
LOC: BIMLAB 09:10
PROVIDERS: PCP Nurse Practitioner Family; Referring Provider Internal Medicine Endocrinology, Diabetes & Metabolism; Visit Provider Internal Medicine Endocrinology, Diabetes & Metabolism
DX: E23.7 Disorder of pituitary gland, unspecified (principal); R13.10 Dysphagia, unspecified
CPT/HCPCS: 36415; 82024; 82533; 83001; 83002; 84305; 84439; 84481

== ENCOUNTER → 2022-08-29 | Outpatient (CLI) | payer MEDICARE, BC, SELFPAY ==
--- NOTE | 2022-08-29 14:57 | ECHOD_ITS ---
Reason For Study: Dyspnea/SOB Procedure This was a 2D Doppler, Color Flow transthoracic echocardiogram. The exam was of adequate technical quality. Exam performed in department. Left Ventricle Normal LV size. Left ventricular systolic function is normal. The estimated ejection fraction is 65 %. No evidence for diastolic dysfunction. No regional wall motion abnormalities noted. Right Ventricle Normal RV size. Normal systolic function. Atria Normal left atrium. Normal right atrium. No doppler evidence for ASD. Mitral Valve There is no mitral annular calcification. Normal mitral valve. Mild (1+) eccentric mitral valve insufficiency. Tricuspid Valve Normal tricuspid valve. Mild to moderate (1-2+) tricuspid valve insufficiency. Right ventricular systolic pressure estimated to be 29 mmHg. Aortic Valve Trisinus/trileaflet aortic valve. Normal aortic valve. Pulmonic Valve The pulmonic valve is not well visualized. Great Vessels Normal sized aortic root. Pericardium/Pleural Trivial pericardial effusion. There are no echocardiographic indications of cardiac tamponade. MMode/2D Measurements & Calculations LVIDd: 3.6 cm IVSd: 1.2 cm Ao root diam: 2.8 cm LVIDs: 2.2 cm LVPWd: 0.92 cm LA dimension: 3.3 cm RVDd: 2.7 cm FS: 37.6 % LAV(MOD-bp): 29.4 ml LA A4 area: 11.6 cm2 RA A4 area: 9.5 cm2 LAV(MOD-bp) Indexed: 18.3 ml/m2 LAV(MOD-sp2): 30.5 ml LAV(MOD-sp4): 25.8 ml Time Measurements MV dec time: 0.16 sec Doppler Measurements & Calculations MV E max fabian: 67.8 cm/sec Lat Peak E' Fabian: 10.4 cm/sec Med Peak E' Fabian: 7.9 cm/sec MV A max fabian: 90.2 cm/sec E/E' lat: 6.5 E/E' med: 8.6 MV E/A: 0.75 MV V2 max: 108.7 cm/sec MV P1/2t max fabian: 91.1 cm/sec Ao V2 max: 120.0 cm/sec MV max P.7 mmHg MV P1/2t: 64.8 msec Ao max P.8 mmHg MV V2 mean: 62.0 cm/sec MV dec slope: 411.6 cm/sec2 Ao V2 mean: 82.2 cm/sec MV mean P.8 mmHg MVA(P1/2t): 3.4 cm2 Ao mean P.1 mmHg MV V2 VTI: 20.9 cm Ao V2 VTI: 27.1 cm AV (velocity ratio): 0.79 LV V1 max: 85.6 cm/sec PA V2 max: 93.3 cm/sec TR max fabian: 255.7 cm/sec LV V1 max P.9 mmHg PA V2 mean: 66.6 cm/sec TR max P.2 mmHg LV V1 mean P.5 mmHg LV V1 mean: 58.4 cm/sec LV V1 VTI: 21.3 cm ECHO/Echo Complete Interpretation Summary Left ventricular systolic function is normal. The estimated ejection fraction is 65 %. Mild (1+) eccentric mitral valve insufficiency. Mild to moderate (1-2+) tricuspid valve insufficiency. Trivial pericardial effusion. There are no echocardiographic indications of cardiac tamponade. Right ventricular systolic pressure estimated to be 29 mmHg. No evidence for diastolic dysfunction. Ordering Physician: Deneen Mercado Performed By: Chidi Denson RCS
== END | disposition home or self-care (01) ==
LOC: CVS 14:03
PROVIDERS: PCP Internal Medicine; Visit Provider Internal Medicine Cardiovascular Disease
DX: R42 Dizziness and giddiness (principal); R00.0 Tachycardia, unspecified; R06.02 Shortness of breath
CPT/HCPCS: 93306

== ENCOUNTER → 2022-11-19 | Outpatient (CLI) | payer MEDICARE, BC, SELFPAY ==
--- NOTE | 2022-11-19 17:35 | STRESSREP ---
Stress Test Report Pharmacologic myocardial perfusion stress test. 67-year-old lady with a history of chest pain Resting EKG demonstrates sinus rhythm with a rate of 76 bpm. Resting blood pressure is 112/74 mmHg. 0.4 mg of regadenoson was infused per usual protocol followed by rapid intravenous saline flush injection. Continuous EKG monitoring was performed. The maximum heart rate was 121 bpm which was 78% of max impacted heart rate the maximum workload was 1 metabolic equivalent. At rest there were no ST or T wave changes noted to suggest ischemia and at peak infusion nonspecific ST changes were noted which did not meet the criteria for ischemia. No clinical angina is noted. The final blood pressure was 120/64 mmHg. Myocardial perfusion protocol. 11.3 mCi of technetium 99m sestamibi was injected at rest. 0.4 mg of regadenoson was infused per usual protocol. At peak infusion 32.6 mCi of technetium 99m sestamibi was injected stress images were obtained stress and rest images were reconstructed and compared in the short axis vertical long and horizontal long axis. Gated images were also obtained. Perfusion SPECT analysis: Review of the stress images demonstrate normal uptake of tracer noted in all areas of the myocardium. The resting images similar demonstrated normal uptake of tracer noted in all areas of the myocardium. No areas of reversibility are noted to suggest ischemia and no previous infarct is noted. Gated SPECT analysis: The gated ejection fraction is 43%. Conclusion: Normal pharmacologic myocardial perfusion stress test. Preserved ejection fraction.
== END | disposition home or self-care (01) ==
LOC: CVS 06:38
PROVIDERS: PCP Internal Medicine; Referring Provider Internal Medicine Cardiovascular Disease; Visit Provider Internal Medicine Cardiovascular Disease
DX: R07.9 Chest pain, unspecified (principal)
CPT/HCPCS: 78452; 93017; A9500; A4216; J2785

== ENCOUNTER → 2023-02-27 | Outpatient (CLI) | payer MEDICARE, BC, SELFPAY | END | disposition home or self-care (01) | LOC: LABSPEC 15:27 | PROVIDERS: PCP Internal Medicine; Referring Provider Physician Assistant Surgical; Visit Provider Physician Assistant Surgical | DX: R30.0 Dysuria (principal) | CPT/HCPCS: 87086; 87088; 87186 ==

== ENCOUNTER → 2023-03-11 | Outpatient (CLI) | payer MEDICARE, BC, SELFPAY ==
[2023-03-11 15:17] LABS: Absolute Lymphocyte Count 2.78 X10^3/uL (0.83-4.51); Absolute Neutrophil Count 3.2 X10^3/uL (2.0-7.7); Basophil# 0.04 X10^3/uL; Basophil% 0.6 % (0-1); Eosinophil# 0.29 X10^3/uL; Eosinophils% 4.3 % (0-5); Hematocrit 39.2 % (37-47); Hemoglobin 12.2 g/dL (12.0-15.0); Lymphocyte # 2.78 X10^3/ul (0.83-4.51); Lymphocyte % 41.3 % (19-41); Mean Corp Hgb Conc 31.1 g/dL (32-36); Mean Corpuscular Hgb 25.9 pg (27.0-32.0); Mean Corpuscular Volume 83.2 fL (81-99); Monocyte# 0.42 X10^3/uL; Monocyte% 6.2 % (0-10); NRBC Flagged by Analyzer 0 % (0-5); Neutrophil # 3.18 X10^3/uL (2.7-7.7); Neutrophil % 47.3 % (47-70); Platelet Count 301 K/mm3 (150-450); RBC Distribution Width CV 13.7 % (11.6-14.6); RBC Distribution Width SD 41.3 fl (35.1-43.9); Red Blood Count 4.71 M/mm3 (4.2-5.4); White Blood Count 6.7 K/mm3 (4.4-11.0)
[2023-03-11 16:24] LABS: ALB/GLOB Ratio 0.8 RATIO (0.9-2.4); AST(SGOT) 23 U/L (15-37); Alanine Aminotransfer ALT/SGPT 25 U/L (13-56); Albumin, Serum 3.6 g/dL (3.2-5.0); Alkaline Phosphatase 99 U/L (45-117); Anion Gap 5 (5-15); BUN 10 mg/dL (7-18); BUN/Creat Ratio 10.1 RATIO (10-20); Calcium,Total 9.3 mg/dL (8.5-10.1); Chloride 106 mmol/L (98-107); Cholesterol 197 mg/dL (200); EST Glomerular Filtration Rate 59 mL/min (>60); Est Glom Filt Rate - Afr Amer 72 mL/min (>60); Globulin 4.5 g/dL (2.2-4.2); Glucose 81 mg/dL (74-106); High Density Lipoprotein 40 mg/dL; Potassium 4.1 mmol/L (3.5-5.1); Protein, Total 8.1 g/dL (6.4-8.2); Sodium Level 139 mmol/L (136-145); T4 Free Direct 0.98 ng/dL (0.76-1.46); Thyroid Stim Hormone (TSH) 2.23 uIU/mL (0.358-3.74); Triglycerides 130 mg/dL; Very Low Density Lipoprotein 26 mg/dL (5-40)
[2023-03-11 16:26] LABS: T3 Total - Triiodothyronine 1.56 ng/mL (0.6-1.81); Vitamin B12 1967 pg/mL (211-911)
[2023-03-12 10:03] LABS: Vitamin D,25 Hydroxy 59.7 ng/mL
== END | disposition home or self-care (01) ==
LOC: BIMLAB 12:19
PROVIDERS: PCP Internal Medicine; Visit Provider Internal Medicine
DX: K59.00 Constipation, unspecified (principal); E56.9 Vitamin deficiency, unspecified; K21.9 Gastro-esophageal reflux disease without esophagitis; E78.2 Mixed hyperlipidemia
CPT/HCPCS: 36415; 80053; 80061; 82306; 82607; 84439; 84443; 84480; 85025

== ENCOUNTER → 2023-03-25 | Outpatient (CLI) | payer MEDICARE, BC, SELFPAY ==
[2023-03-25 16:28] LABS: Erythrocyte Sedimentation Rate 28 mm/hr (0-30)
[2023-03-25 16:44] LABS: Vitamin D,25 Hydroxy 54.2 ng/mL
[2023-03-25 17:37] LABS: Rheumatoid Factor < 10.0 IU/mL (<15)
[2023-03-29 07:07] LABS: Anti-Centromere B Ab <0.2 AI (0.0-0.9); Anti-Chromatin <0.2 AI (0.0-0.9); Anti-Jo <0.2 AI (0.0-0.9); Anti-Scleroderma-70 AB <0.2 AI (0.0-0.9); Anti-dsDNA Ab 1 IU/mL (0-9); Beef <0.10 kU/L (Class 0); Chocolate <0.10 kU/L (Class 0); Clam <0.10 kU/L (Class 0); Codfish <0.10 kU/L (Class 0); Corn <0.10 kU/L (Class 0); Egg, White <0.10 kU/L (Class 0); Egg, Whole <0.10 kU/L (Class 0); Milk (Cow) <0.10 kU/L (Class 0); Peanut <0.10 kU/L (Class 0); Pork <0.10 kU/L (Class 0); RNP Ab <0.2 AI (0.0-0.9); SCALLOP <0.10 kU/L (Class 0); SESAME SEED <0.10 kU/L (Class 0); SJOGREN'S Anti-SS-A test < 0.2 AI (0.0-0.9); SJOGREN'S Anti-SS-B test < 0.2 AI (0.0-0.9); Shrimp <0.10 kU/L (Class 0); Smith Ab <0.2 AI (0.0-0.9); Soybean <0.10 kU/L (Class 0); Vitamin D 1,25-Dihydroxy 29.1 pg/mL (24.8-81.5); Walnut, (Food) <0.10 kU/L (Class 0); Wheat <0.10 kU/L (Class 0)
[2023-03-30 15:07] LABS: Adrenocorticotropic Hormone 28.4 pg/mL (7.2-63.3); CCP IgG Antibodies 8 units (0-19); Cytoplasmic Ab (C-ANCA) <1:20 titer (Neg:<1:20); Endomysial Antibody IgA Negative (Negative); Immunoglobulin A 368 mg/dL (87-352); Perinuclear Ab (P-ANCA) <1:20 titer (Neg:<1:20); t-Transglutaminase IgA <2 U/mL (0-3)
== END | disposition home or self-care (01) ==
LOC: LAB 16:00
PROVIDERS: PCP Internal Medicine; Referring Provider Internal Medicine Gastroenterology; Visit Provider Internal Medicine Gastroenterology
DX: R13.10 Dysphagia, unspecified (principal); K58.9 Irritable bowel syndrome, unspecified; M81.0 Age-related osteoporosis without current pathological fracture
CPT/HCPCS: 36415; 82024; 82306; 82533; 82652; 82746; 82784; 83516; 85652; 86003; 86005; 86140; 86200; 86225; 86235; 86255; 86256; 86431

== ENCOUNTER → 2023-07-01 | Outpatient (CLI) | payer MEDICARE, BC, SELFPAY | END | disposition home or self-care (01) | PROVIDERS: PCP Internal Medicine; Visit Provider Physician Assistant Surgical | DX: N39.0 Urinary tract infection, site not specified (principal) | CPT/HCPCS: 87086 ==

== ENCOUNTER → 2023-08-18 | Outpatient (CLI) | payer MEDICARE, BC, SELFPAY ==
[2023-08-21 21:16] LABS: HPV Reflexed? NOT INDICATED
== END | disposition home or self-care (01) ==
LOC: LAB 11:58
PROVIDERS: PCP Internal Medicine; Referring Provider Obstetrics & Gynecology; Visit Provider Obstetrics & Gynecology
DX: Z12.4 Encounter for screening for malignant neoplasm of cervix (principal); D84.9 Immunodeficiency, unspecified; Z78.0 Asymptomatic menopausal state
CPT/HCPCS: 88175; G0145

== ENCOUNTER → 2023-10-23 | Outpatient (CLI) | payer MEDICARE, BC, SELFPAY | END | disposition home or self-care (01) | PROVIDERS: PCP Internal Medicine; Referring Provider Physician Assistant Surgical; Visit Provider Physician Assistant Surgical | DX: R30.0 Dysuria (principal) | CPT/HCPCS: 87077; 87086; 87088; 87186 ==

== ENCOUNTER → 2023-11-26 | Outpatient (CLI) | payer MEDICARE, BC, SELFPAY | END | disposition home or self-care (01) | LOC: LABSPEC 15:46 | PROVIDERS: PCP Internal Medicine; Referring Provider Physician Assistant Surgical; Visit Provider Physician Assistant Surgical | DX: R30.0 Dysuria (principal) | CPT/HCPCS: 87086; 87088; 87186 ==

== ENCOUNTER → 2024-01-04 | Outpatient (CLI) | payer MEDICARE, BC, SELFPAY | END | disposition home or self-care (01) | LOC: LABSPEC 15:08 | PROVIDERS: PCP Internal Medicine; Visit Provider Nurse Practitioner Family | DX: N39.0 Urinary tract infection, site not specified (principal) | CPT/HCPCS: 87086; 87088; 87186 ==

== ENCOUNTER → 2024-08-18 | Outpatient (CLI) | payer MEDICARE, BC, SELFPAY ==
--- NOTE | 2024-08-18 13:54 | RAD_ITS ---
EXAM: L/S SPINE MIN 4 VIEWS CLINICAL HISTORY: Back pain. COMPARISON: None. TECHNIQUE: Four views were obtained including oblique views. FINDINGS: Straightening of the normal lumbar lordosis. Moderate degree of disc space narrowing at the L1-L2 and L2-L3 levels. Moderate amount of fecal material is seen throughout the colon. RAD/L/S Spine Min 4 Views IMPRESSION: Degenerative changes. Reading Location: [facility]
== END | disposition home or self-care (01) ==
LOC: MTRAD 13:53
PROVIDERS: PCP Internal Medicine; Referring Provider Physician Assistant Surgical; Visit Provider Physician Assistant Surgical
DX: S39.012A Strain of muscle, fascia and tendon of lower back, initial encounter (principal); X58.XXXA Exposure to other specified factors, initial encounter
CPT/HCPCS: 72110

== ENCOUNTER → 2024-10-12 | Outpatient (CLI) | payer MEDICARE, BC, SELFPAY | END | disposition home or self-care (01) | LOC: LABSPEC 12:29 | PROVIDERS: PCP Internal Medicine; Visit Provider Physician Assistant | DX: R30.0 Dysuria (principal) | CPT/HCPCS: 87077; 87086; 87088; 87186 ==

== ENCOUNTER 2024-10-14 08:44 | Day surgery (SDC) | payer MEDICARE, BC, SELFPAY ==
[2024-10-14] MEDS: Lidocaine Jelly 2% 20 ML Syringe (URO-JET) 1 APPLIC (09:00)
[2024-10-14 09:01] VITALS: BP 110/47; PULSE 98; RESP 16; TEMP 36.5; O2SAT 99
== END 2024-10-14 09:34 | disposition home or self-care (01) ==
PROVIDERS: PCP Internal Medicine; Referring Provider Internal Medicine; Visit Provider Internal Medicine Gastroenterology
PROC: F00ZJWZ Instrumental Swallowing and Oral Function Assessment using Swallowing Equipment (ICD-10-PCS; CPT 43235; principal; 2024-10-14 08:55)
DX: R13.11 Dysphagia, oral phase (principal)
CPT/HCPCS: 91010

== ENCOUNTER → 2024-11-11 | Outpatient (CLI) | payer MEDICARE, BC, SELFPAY ==
--- NOTE | 2024-11-11 12:25 | ST.MBS ---
Modified Barium Swallow Patient Information Study Date: 11/11/24 Study Time: 12:50 Direct Billable Minutes: 101 Total Minutes procedure & reportin Diagnosis: Dysphagia R13.10 Referring Physician: Arnulfo Puente Reason for Referral: Per Gastroenterology OV 09/27/2024: PMH...Sinus cancer 2000 s/p surgery with turbinates removed, 2003 with a spot right of septum s/p radiation to her sinuses with fistulas and flaps placed (2018), continues to have dryness. Breast cancer 2010 s/p lumpectomy, chemotherapy and radiation. Following cancer treatment she began losing sight in her eyes and has been blind since 2016, Hyperbaric treatment on two occasions in an attempt to save her sight...EGD performed 10.15.21 finding benign appearing esophageal stenosis, Savary dilator to 51F; LA Grade A reflux esophagitis without metaplasia; small hiatal hernia. GI hx also includes dysphagia w/ large pills, needing to eat slower due to sensation of spasms, some nausea and emesis. During this most recent visit, the patient reports having esophageal dysphagia again. Dr. Puente ordered esophageal manometry, as well as this MBSS for further assessment of swallowing. He suspects that esophageal dysphagia is secondary to decreased secretions from hx of HNC s/p treatment. Manometry revealed EGJ w/ decreased relaxation w/ mildly increased pressure...Esophageal body showed spastic esophagus w/ 25% premature contraction...Distal esophageal spasm w/ possible achalasia. Per patient report, she is concerned for difficulty chewing w/ flap reconstruction in oral cavity of her upper gumline, which attaches to her palate and sides of her buccal cavity. She does have several intact teeth in front dentition. She reports increased coughing w/ foods, drinks, and even saliva intermittently in the past 6-12 months. She did have hx of oral dysphagia s/p HNC surgery and treatment, but, once recovered from treatment, for a very long time her swallow had not given her difficulty. Breads give her the most difficulty. Medical History: PMH: Dysphagia, HNC s/ radiation (2003), GERD, Gastroparesis, Immunocompromised patient, IBS, Constipation, Chronic sinusitis, Visually impaired - Blindness. See EMR for full PMH. Current Diet Ordered: Regular textures / Thin liquids Dentition: Natural Teeth and Missing Teeth Mental Status: WNL Respiratory Status: Oxygenating on Room Air Penetration-Aspiration Scale Penetration-Aspiration Scale: OBJECTIVE ASSESSMENT OF SWALLOW FUNCTION (QUANTITATIVE ? PER TRIAL): PENETRATION / ASPIRATION SCALE (LE): 1 = does not enter airway 2 = enters airway/above vocal folds/ejected 3 = enters airway/above vocal folds/not ejected 4 = enters airway/contacts vocal folds/ejected 5 = enters airway/contacts vocal folds/not ejected 6 = enters airway/below vocal folds/ejected 7 = enters airway/below vocal folds/not ejected despite effort 8 = enters airway/below vocal folds/no effort VIDEOFLOROSCOPIC SCALE SCORE (LE): Grade I = aspiration of material that has penetrated into the laryngeal vestibule, intact cough reflex Grade II = aspiration < 10 % of the bolus, intact cough reflex Grade III = aspiration of < 10 % of the bolus, reduced cough reflex or aspiration of > 10 % of the bolus, intact cough reflex Grade IV = aspiration of > 10 % of the bolus, reduced cough reflex Penetration-Aspiration Scale Score Thin Liquid via teaspoon: Result: 1= does not enter airway Thin Liquid via teaspoon Trial 2: Result: 1= does not enter airway Thin Liquid via large single sip: cup: Result: 1= does not enter airway [place] Thick Liquid via large single sip: cup: Result: 1= does not enter airway Pudding via teaspoon: Result: 1= does not enter airway Comment: Esophageal screen - Some clearance through the LES. Retention in the middle and lower esophagus. Thin Liquid via single sip: straw: Result: 1= does not enter airway Comment: Esophageal screen - Liquid wash somewhat cleared pudding retention through the LES. 1/2 Cookie coated in Barium Pudding: Result: 1= does not enter airway Comment: Esophageal screen - Retention of cookie throughout the esophagus. Thin Liquid via single sip: straw Trial 2: Result: 1= does not enter airway Comment: Esophageal screen - Liquid wash effectively cleared most (~75%) of cookie through the LES. Thin Liquid via sequential sips: cup: Result: 1= does not enter airway Barium Tablet: Result: 1= does not enter airway Comment: Cleared oral cavity w/ 2 sips of water Esophageal screen - Retention in the middle esophagus. An additional sip of water cleared the tablet to the LES. Pudding provided during esophageal screen, which did not help to clear the tablet through the LES, but rather it became caught throughout the esophagus. An additional sip of liquid barium cleared the tablet through the LES. Oral Phase Labial Seal: No Labial Escape Tongue Control During Bolus Hold: Escape to lateral buccal cavity/floor of mouth Bolus Preparation/Mastication: Slow prolonged chewing/mashing with complete recollection Bolus Transport/Lingual Motion: Delayed initiation of tongue motion Oral Residue: Trace residue lining oral structures Pharyngeal Phase Initiation of Pharyngeal Swallow: Bolus head at posterior laryngeal surgace of epiglottis (1X, sequential thin) Soft Palate Elevation: Trace column of contrast/air between soft palate and pharyngeal wall Laryngeal Elevation: Comp. Superior move thyroid cart w/comp. apprx arytenoid cart-epig pet Anterior Hyoid Excursion: Complete anterior movement Epiglottic Movement: Complete inversion Laryngeal Vestibule Closure at Height of Swallow: Complete; no air/contrast in laryngeal vestibule Pharyngeal Stripping Wave: Present - complete Pharyngoesophageal Segment Opening: Complete distension and complete duration; no obstruction of flow Tongue Base Retraction: Narrow column of contrast between tongue base & post. pharyngeal wall Pharyngeal Residue: Collection of residue within or on pharyngeal structures (1X, sequential thin) Esophageal Phase Esophageal Clearance: Esophageal retention w/ retrograde flow below pharyngoesophageal seg. Diagnosis/Impression Diagnosis: Esophageal dysphagia R13.14 w/ Mild oral dysphagia R13.11 Impression: Mild oral dysphagia characterized by slowed, but complete mastication and posterior loss of sequential thin sips to the posterior surface of the epiglottis prior to swallow onset. The patient had occ loss of liquids to the FOM w/ single sips. Good oral clearance of food/drink. The pharyngeal phase is grossly WNL. Mild pharyngeal residue 1X w/ sequential sips of thin liquids, which the patient fully cleared w/ independent initiation of an additional swallow. The esophageal phase is marked by... -Retention of pudding in the middle/lower esophagus and cookie throughout the esophagus, which somewhat improved w/ liquid washes. -Retention of barium tablet in the middle esophagus, then clearing to the LES w/ an additional sip. It required an additional sip to fully clear through the LES. Recommendations Diet: Regular Textures (Moisten dry textures) and Thin Liquids Comment: Medications whole w/ multiple liquid washes after each (5-6 drinks of water), could also consider crushing certain medications as able. STOP meal if increased s/s of reflux, sensation of retention, or regurgitation despite use of strategies listed below and resume meal at a later time. Compensatory Strategies: Small Bites (Chew thoroughly), Small Sips, Slow Rate, Alternate bites/solids and sips/liquids (1:1 ratio), Sitting upright and Remain sitting upright for 30 minutes after PO intake Recommend Repeat Modified Barium Swallow: TBD Need for Skilled Speech Therapy Services: No Comment: Pt can manage mild oral phase deficits w/ use of thorough mastication, small sips, and taking her time. No therapy warranted at this time. Recommended Referrals: GI Consult (Continue to follow w/ GI for management of dysphagia) Education Completed: 1. Described result of evaluation. and 2. Pt understands evaluation & agrees with goals and treatment plan. Status Active ST Patient: Active Contact Information [facility] Speech Therapy:: Seema Sofia M.A. CCC-CAGE TENDER? Speech-Language Pathologist?? [facility] [address] [place] [address]? [email or web address]?? [phone]
== END | disposition home or self-care (01) ==
LOC: RAD 12:35
PROVIDERS: PCP Internal Medicine; Referring Provider Internal Medicine Gastroenterology; Visit Provider Internal Medicine Gastroenterology
DX: R13.10 Dysphagia, unspecified (principal)
CPT/HCPCS: 74230; 92611

== ENCOUNTER → 2024-11-25 | Outpatient (CLI) | payer MEDICARE, BC, SELFPAY | END | disposition home or self-care (01) | LOC: LABSPEC 09:34 | PROVIDERS: PCP Internal Medicine; Referring Provider Obstetrics & Gynecology; Visit Provider Obstetrics & Gynecology | DX: Z12.4 Encounter for screening for malignant neoplasm of cervix (principal) | CPT/HCPCS: 88175; G0145 ==

== ENCOUNTER → 2025-02-28 | Outpatient (CLI) | payer MEDICARE, BC, SELFPAY | END | disposition home or self-care (01) | LOC: LABSPEC 13:37 | PROVIDERS: PCP Internal Medicine; Visit Provider Physician Assistant | DX: R30.0 Dysuria (principal) | CPT/HCPCS: 87077; 87086; 87088; 87186 ==

== ENCOUNTER 2025-04-21 09:17 | Day surgery (SDC) | payer MEDICARE, BC, SELFPAY ==
[2025-04-21] VITALS (7 sets, daily range): BP systolic 116–131; BP diastolic 48–87; PULSE 69–82; RESP 16; TEMP 36.1–36.4; O2SAT 97–100; BMI 23.8
[2025-04-21] MEDS: Lactated Ringers 1,000 ML 15 ML IV (09:51)
[2025-04-21] MEDS: 0.9% Saline Lock 10 ML Syringe IV (11:12)
[2025-04-21] MEDS: 0.9% Normal Saline (Pres. free 10 ML Vial (11:19)
== END 2025-04-21 12:57 | disposition home or self-care (01) ==
LOC: EN 09:17 → AC 09:19
PROVIDERS: PCP Internal Medicine; Referring Provider Internal Medicine; Visit Provider Internal Medicine Gastroenterology
PROC: 0DJ08ZZ Inspection of Upper Intestinal Tract, Via Natural or Artificial Opening Endoscopic (ICD-10-PCS; CPT 43235; principal; 2025-04-21 10:25)
DX: K22.0 Achalasia of cardia (principal); K21.00 Gastro-esophageal reflux disease with esophagitis, without bleeding; K31.7 Polyp of stomach and duodenum; K58.1 Irritable bowel syndrome with constipation
CPT/HCPCS: 43248; 43236; 43239; 88305; A4216; C1769; J0585; J2405

== ENCOUNTER → 2025-06-06 | Outpatient (CLI) | payer MEDICARE, BC, SELFPAY ==
--- NOTE | 2025-06-06 16:57 | CT_ITS ---
PROCEDURE: SINUS/FACIAL BONE WITH CONTRAS 06/06/2025 REASON FOR EXAM: HISTORY SINUS CANCER, CHRONIC SINUSITIS TECHNIQUE: Procedure Code: CTSIW Modality: CT Procedure: SINUS/FACIAL BONE WITH CONTRAS Coronal and Sagittal reconstruction series were provided. CONTRAST: VOLUME: mL One or more dose reduction techniques were used (e.g., Automated exposure control, adjustment of the mA and/or kV according to patient size, use of iterative reconstruction technique). FINDINGS: Postsurgical changes of bilateral nasoantral windows, partial right-sided ethmoidectomies, and right sphenoidectomy. There is also surgical resection of the floors of the maxillary sinuses and the anterior wall of the sella turcica. Mild mucosal thickening is noted within the bilateral maxillary sinuses, and moderate mucosal thickening within the right sphenoid sinus. Fluid is noted within a few right mastoid air cells. The left mastoid air cells are clear. Mild leftward bowing of the bony nasal septum. Surgical clips are noted in the soft tissues in the left side of the face and in the soft palate. Degenerative changes are noted within the bilateral temporomandibular joints. Diffuse osteopenia, which may be secondary to treatment. CT/Sinus/Facial Bone WITH Contras IMPRESSION: Extensive postsurgical changes, as described above. Mild bilateral maxillary and moderate right sphenoid sinusitis. Mild right mastoid effusion. Reading Location: [id number]
== END | disposition home or self-care (01) ==
LOC: CT 16:53
PROVIDERS: PCP Internal Medicine; Referring Provider Internal Medicine; Visit Provider Internal Medicine
DX: J32.4 Chronic pansinusitis (principal); Z85.22 Personal history of malignant neoplasm of nasal cavities, middle ear, and accessory sinuses; J34.89 Other specified disorders of nose and nasal sinuses
CPT/HCPCS: 70487; Q9967; A4216